=== PATIENT | female | born 1955 | race Caucasian/White ===

== ENCOUNTER → 2018-03-28 08:02 | Outpatient (CLI) | payer OTHER, SELFPAY ==
[2018-03-28 09:17] LABS: Add Manual Diff / Slide Review NO; Basophils Percent Auto 0.4 % (0-2); Eosinophils Percent Auto 4.4 % (2-4); Hematocrit 41.9 % (36-46); Hemoglobin 14.3 g/dL (12.0-16.0); Lymphocytes Percent Auto 35.9 % (25-40); Mean Corpuscular HGB Conc 34.2 % (30-36); Mean Corpuscular Hemoglobin 29.7 PG (26-34); Mean Corpuscular Volume 86.8 fL (80-100); Monocytes Percent Auto 10.3 % (3-14); Neutrophils Absolute Auto 1800 /uL (3000-5900); Platelet Count 234 X10^3/uL (150-400); Red Blood Cell Count 4.83 X10^6/uL (4.0-5.2); Red Cell Distribution Width 13.7 % (11.6-14.8); White Blood Cell Count 3.7 X10^3/uL (4.5-11.0)
[2018-03-28 09:21] LABS: Alanine Aminotransferase 24 IU/L (9-52); Albumin 4.2 g/dL (3.5-5.0); Albumin Globulin Ratio 1.4 (1.0-2.8); Alkaline Phosphatase 76 U/L (38-126); Aspartate Aminotransferase 21 IU/L (14-36); BUN Creatinine Ratio 12.5 (6-22); Bilirubin Total 0.4 mg/dL (0.2-1.3); Blood Urea Nitrogen 10 mg/dL (7-17); Calcium 9.1 mg/dL (8.4-10.2); Carbon Dioxide 29 mmol/L (22-32); Chloride 104 mmol/L (98-107); Cholesterol 226 mg/dL (140-199); Estimated Glomerular Filt Rate > 60.0 mL/min (>60); Globulin 2.9 g/dL (1.7-4.1); Glucose 89 mg/dL (80-110); HDL Cholesterol 76 mg/dL (40-60); HEMOLYSIS < 15 (0-50); LDL Cholesterol Calculated 134 mg/dL (<100); Potassium 4.3 mmol/L (3.4-5.1); Sodium 142 mmol/L (137-145); Total Protein 7.1 g/dL (6.3-8.2); Triglycerides 78 mg/dL (35-150)
== END ==
PROVIDERS: Visit Provider Registered Nurse
DX: J32.9 Chronic sinusitis, unspecified (principal); R03.0 Elevated blood-pressure reading, without diagnosis of hypertension; Z13.6 Encounter for screening for cardiovascular disorders
CPT/HCPCS: 36415; 80053; 80061; 85025

== ENCOUNTER → 2018-05-10 12:47 | Outpatient (CLI) | payer OTHER, SELFPAY | PROVIDERS: Visit Provider Registered Nurse | DX: M85.88 Other specified disorders of bone density and structure, other site (principal); Z78.0 Asymptomatic menopausal state; Z82.62 Family history of osteoporosis | CPT/HCPCS: 77080 ==

== ENCOUNTER → 2018-11-10 10:07 | Outpatient (CLI) | payer OTHER, SELFPAY ==
--- NOTE | 2018-11-10 10:08 | DI.MG.S_ITS ---
BILATERAL DIGITAL SCREENING MAMMOGRAM 3D/2D WITH CAD: 11/10/2018 CLINICAL: Routine screening. Family history of breast cancer. Comparison is made to exams dated: 08/19/2009 mammogram, 08/08/2008 mammogram, and 07/06/2007 mammogram - [facility]. The tissue of both breasts is extremely dense, which lowers the sensitivity of mammography. Current study was also evaluated with a Computer Aided Detection (CAD) system. No significant masses, calcifications, or other findings are seen in either breast. There has been no significant interval change. IMPRESSION: NEGATIVE There is no mammographic evidence of malignancy. A 1 year screening mammogram is recommended. This exam was interpreted at Station ID: [id number]. NOTE: For mammograms, a report in lay terms will be sent to the patient. Approximately 15% of breast malignancies will not be visualized mammographically. In the management of a palpable breast mass, a negative mammogram must not discourage biopsy of a clinically suspicious lesion. Electronically Signed By: Jose Francisco briceño/reena:11/11/2018 06:28:55 letter sent: Normal Exam ACR BI-RADS Category 1: Negative 3341F
[2018-11-10 11:31] LABS: Add Manual Diff / Slide Review NO; Basophils Absolute Auto 0 /uL (0-100); Basophils Percent Auto 0.5 % (0-2); Eosinophils Absolute Auto 100 /uL (0-450); Hematocrit 39.4 % (36-46); Hemoglobin 13.5 g/dL (12.0-16.0); Lymphocytes Absolute Auto 1200 /uL (1100-4500); Mean Corpuscular HGB Conc 34.4 % (30-36); Mean Corpuscular Hemoglobin 29.8 PG (26-34); Mean Corpuscular Volume 86.8 fL (80-100); Monocytes Absolute Auto 300 /uL (0-900); Monocytes Percent Auto 9.4 % (3-14); Neutrophils Absolute Auto 2100 /uL (1500-7000); Neutrophils Percent Auto 56.1 % (50-75); Platelet Count 238 X10^3/uL (150-400); Red Blood Cell Count 4.54 X10^6/uL (4.0-5.2); Red Cell Distribution Width 13.7 % (11.6-14.8); White Blood Cell Count 3.7 X10^3/uL (4.5-11.0)
== END ==
PROVIDERS: Visit Provider Registered Nurse
DX: Z12.31 Encounter for screening mammogram for malignant neoplasm of breast (principal); Z80.3 Family history of malignant neoplasm of breast; D72.819 Decreased white blood cell count, unspecified
CPT/HCPCS: 36415; 77063; 77067; 85025

== ENCOUNTER 2019-05-12 07:18 | Day surgery (SDC) | payer OTHER, SELFPAY ==
[2019-05-12] VITALS (7 sets, daily range): BP systolic 74–105; BP diastolic 44–75; PULSE 64–85; RESP 10–15; TEMP 36.2–37; O2SAT 95–99; BMI 27.2
[2019-05-12] MEDS: SODIUM CHLORIDE 0.9% 1,000 ML 200 ML IV (07:45)
--- NOTE | 2019-05-12 08:35 | PM.HP.1 ---
History of Present Illness History of Present Illness Date Patient Seen: 05/12/19 Time Patient Seen: 08:35 Chief complaint: Colonoscopy [id number] Narrative: This is a 64-year-old woman with history of screening colonoscopy 10 years ago which she was told was normal. She denies any melena, hematochezia, or other unexplained abdominal symptoms. ROS: Thirteen system review is negative other than as mentioned below and in HPI. PE: GENERAL: Well groomed and cooperative. Appears stated age. Answers questions promptly and appropriately. Vital signs noted. HENT: Normocephalic, atraumatic. Hearing intact. Oral mucosa is pink and moist. EYES: Conjunctiva pink, sclera white, no periorbital swelling. CARDIOVASCULAR: Regular rate. No pedal edema. RESPIRATORY: Non tachypneic, breathing comfortably on room air. GASTROINTESTINAL: Abdomen soft and non-distended GENITALURINARY: No flank tenderness. MUSCULOSKELETAL: Equal tone and mass bilaterally. SKIN: Warm, dry, soft, appropriate color for ethnicity. No other lesions, rashes, or wounds. NEURO: Alert and Oriented X 3. No gross sensory deficits, or cognitive issues. PSYCH: Appropriate affect and mood. Patient History Medical History Chicken pox (Resolved ~1957) Herpes (Resolved ~1971) History of urinary incontinence (Chronic) Knee pain (Chronic ~2013) Measles (Resolved ~1958) Recurrent sinusitis (Chronic) Rosacea (Chronic) Skin cancer (Chronic ~2005) Vertigo (Resolved ~2005) Vision disorder (Chronic) Surgical History Anesthesia (Resolved) History of section (Resolved ~1980) History of surgery (Resolved ~1991) Mohs defect (Resolved ~2005) Family & Social History Family History Father Hypertension Heart disease Mental health problem Mother Cancer Social History: household members spouse Tobacco & Substance use: Smoking Status Never smoker alcohol intake current Meds Home Medications and Allergies Home Medications Medication Instructions Recorded Confirmed Type calcium carbonate [Calcium 500] 500 mg PO DAILY 05/12/19 05/12/19 History cholecalciferol (vitamin D3) 2,000 unit PO DAILY 05/12/19 05/12/19 History [Vitamin D3] ibuprofen 600 mg PO Q6H PRN 05/12/19 05/12/19 History magnesium 250 mg PO DAILY 05/12/19 05/12/19 History Allergies Allergy/AdvReac Type Severity Reaction Status Date / Time No Known Drug Allergies Allergy Verified 05/12/19 07:44 Exam Vital Signs (past 8 hours): - 05/12/19 07:39 Temperature 97.6 F Pulse Rate 75 Respiratory Rate 15 Blood Pressure 105/75 Pulse Oximetry 95 Oxygen Delivery Method Room Air Assessment & Plan Assessment and plan (1) At average risk for colon cancer: Current visit: Yes Status: Acute (2) Encounter for screening colonoscopy: Current visit: Yes Status: Acute Assessment & Plan narrative: Risks and benefits of screening colonoscopy were discussed the patient desires to proceed. We discussed the risk of bleeding, perforation, need for additional procedures. Time Spent With Patient Time with patient: 15-24 minutes Quality VTE Deep Vein Thrombosis/Pulmonary Embolism Present on Admission: No
--- NOTE | 2019-05-12 09:03 | PM.OP.ENDO ---
Operative Date/Time/Diagnoses Date of procedure: 05/12/19 Time of procedure: 09:03 Pre-op diagnosis: Average risk for colon cancer Post-op diagnosis: same Procedure & Clinicians Study performed: Colonoscopy Same procedure as scheduled: Yes Indications: 64-year-old woman who has not had a colonoscopy in over 10 years. Prior colonoscopy was normal for the patient. Surgeon: Daphne Gardner Procedure Notes SCOAP/Timeout: Performed Procedure in detail: The patient was brought to the room and placed in left lateral decubitus position with all bony prominences padded. A time-out was performed and then the patient was given procedural sedation starting with 3 mg of Versed and 100 mcg of fentanyl. An additional 50 micro g of fentanyl were given during the procedure. Vitals were monitored throughout the procedure and remained stable. Once adequately sedated the procedure was begun. A rectal exam was performed revealing no abnormalities. The colonoscope was then introduced to the rectum and advanced to the cecum in the usual fashion. The colon was very twisted in redundant, prolonging the procedure in requiring extra maneuvering to reach the cecum.The cecum was identified by the appendiceal orifice, the mucosal try fold, and the ileocecal valve. The scope was then retracted while rotating side to side and examining each mucosal fold. At the conclusion procedure retroflexion was performed and small grade 1-2 internal hemorrhoids without stigmata of bleeding were seen. The scope was then withdrawn from the rectum the procedure was concluded. The patient tolerated the procedure well was transferred to the PACU in stable condition. Scope withdrawal time: 8 Sedation minutes: 24 Specimen(s): none sent Complications: none Impression: Normal colon Post-procedure Recommendations: Colonscopy in 10 years Follow up: as needed Disposition: PACU
[2019-05-12] MEDS: MIDAZOLAM 5 MG/5 ML VIAL IV (09:05)
[2019-05-12] MEDS: fentaNYL 250 MCG/5 ML INJ IV (09:06)
== END 2019-05-12 09:51 | disposition home or self-care (01) ==
PROVIDERS: PCP Registered Nurse; Visit Provider Surgery
PROC: 0DJD8ZZ Inspection of Lower Intestinal Tract, Via Natural or Artificial Opening Endoscopic (ICD-10-PCS; CPT 45378; principal; 2019-05-12 08:30)
DX: Z12.11 Encounter for screening for malignant neoplasm of colon (principal); K64.0 First degree hemorrhoids
CPT/HCPCS: G0121; 45378; 99152; J2250; J3010

== ENCOUNTER → 2020-04-26 14:14 | Outpatient (CLI) | payer MEDICARE, SELFPAY ==
[2020-04-26 15:05] LABS: COVID19 -Nasal RAPID Negative (Negative)
== END ==
PROVIDERS: PCP Registered Nurse Diabetes Educator; Visit Provider Nurse Practitioner
DX: Z11.59 Encounter for screening for other viral diseases (principal)
CPT/HCPCS: 87635

== ENCOUNTER → 2020-06-29 14:23 | Outpatient (CLI) | payer MEDICARE, SELFPAY ==
[2020-06-29 15:50] LABS: COVID19 -Nasal RAPID Negative (Negative)
== END ==
PROVIDERS: PCP Registered Nurse Diabetes Educator; Visit Provider Physician Assistant
DX: Z20.822 Contact with and (suspected) exposure to COVID-19 (principal)
CPT/HCPCS: 87635; C9803

== ENCOUNTER 2020-07-02 09:01 | Day surgery (SDC) | payer MEDICARE, SELFPAY ==
[2020-07-02] MEDS: CATARACT EYE COMPOUND (10 DROPS/SYRINGE) 3 DROPS EYE-OP (09:21)
[2020-07-02] MEDS: PROPARACAINE 0.5% OPHTH SOL 2 DROPS EYE-OP (09:21)
--- NOTE | 2020-07-02 09:28 | PM.PREOP ---
Pre-operative Note Interval Note History & Physical reviewed/Exam performed by Physician: Yes Changes to H&P: No
--- NOTE | 2020-07-02 09:28 | PM.OP.1 ---
Operative Date/Time/Diagnoses Pre-op diagnosis: Nuclear cataract right eye Procedure & Clinicians Procedure: Cataract Surgery Same procedure as scheduled: Yes Surgeon: eKvin Alvarez Anesthesia Type: MAC +/- and Sedation Operative Notes Procedure in detail: Patient brought to the operating suite. Tetracaine drops placed in the right eye. Patient was prepped and draped in sterile manner. Wire lid speculum was placed in the eye. Betadine drops were placed on the eye. This was irrigated. Lidocaine jelly was placed on the eye. A paracentesis port was created with a side-port blade. 0.1 mL 1% preservative free lidocaine was injected into the anterior chamber. The anterior chamber was deepened with viscoelastic. 2.6 mm keratome was used to create a temporal clear corneal incision. Cystotome and Utrata forceps were used to create continuous tear capsulorrhexis. Balanced salt solution was used to hydro dissect the nucleus. The phacoemulsification handpiece was inserted and the nucleus was removed using the stop and chop technique. The irrigation aspiration handpiece was inserted and the remaining cortex was removed. Anterior chamber was deepened with viscoelastic. An Scott ZCB00 intraocular lens with a power of 22.0 was injected into the capsular bag. Irrigation aspiration handpiece was inserted and the remaining viscoelastic was removed. Incision was hydrated with balanced salt solution and found to be leak free with pressure with Weck-Regina sponges. 0.1 mL Vigamox injected anterior chamber. 0.3 mL Kenalog 10 mg was injected subconjunctivally. Lid speculum was removed. The patient left the operating room in excellent condition. Complications: none Post-operative Condition: stable Disposition: same day surgery
[2020-07-02 09:30] VITALS: BP 105/69; PULSE 81; RESP 14; TEMP 36.7; O2SAT 100
[2020-07-02 09:32] VITALS: BMI 26.2
[2020-07-02] MEDS: TRIAMCINOLONE 50 MG/5 ML VIAL INJ (09:48)
[2020-07-02] MEDS: MOXIFLOXACIN INJ 5 MG/ML VIAL EYE-OP (09:48)
[2020-07-02] MEDS: BALANCED SALT IRRIG SOLN NO.2 500 ML, EPINEPHrine 1 MG IRR (09:49)
[2020-07-02] MEDS: PHENYLEPHRINE/LIDOCAINE VIAL (OR) 0.2 ML EYE-OP (09:49)
[2020-07-02] MEDS: LIDOCAINE JELLY 2% 5 ML 1 APPLIC TOP (09:50)
[2020-07-02] MEDS: CHONDROIDTIN/SOD HYALURONATE 1.05 ML SYRINGE INTRAOCULA (09:50)
[2020-07-02] MEDS: TETRACAINE 0.5% OPHTH DROPS 4 ML 2 DROPS EYE-OP (09:50)
[2020-07-02 10:00] VITALS: BP 106/69; PULSE 71; RESP 14; TEMP 36.4; O2SAT 99
== END 2020-07-02 10:13 | disposition home or self-care (01) ==
PROVIDERS: PCP Registered Nurse Diabetes Educator; Referring Provider Ophthalmology; Visit Provider Ophthalmology
PROC: (CPT 66984; principal; 2020-07-02 10:45)
DX: H25.11 Age-related nuclear cataract, right eye (principal)
CPT/HCPCS: 66984; J0171; J2250; J3301

== ENCOUNTER → 2020-07-13 09:29 | Outpatient (CLI) | payer MEDICARE, SELFPAY ==
[2020-07-13 11:15] LABS: COVID19 -Nasal RAPID Negative (Negative)
== END ==
PROVIDERS: PCP Registered Nurse Diabetes Educator; Visit Provider Nurse Practitioner Family
DX: Z20.822 Contact with and (suspected) exposure to COVID-19 (principal)
CPT/HCPCS: 87635; C9803

== ENCOUNTER 2020-07-16 08:03 | Day surgery (SDC) | payer MEDICARE, SELFPAY ==
[2020-07-16] MEDS: PROPARACAINE 0.5% OPHTH SOL 2 DROPS EYE-OP (08:42)
[2020-07-16 08:43] VITALS: BP 124/70; PULSE 67; RESP 97; TEMP 36.6; BMI 62.1
[2020-07-16] MEDS: CATARACT EYE COMPOUND (10 DROPS/SYRINGE) 3 DROPS EYE-OP (08:45)
--- NOTE | 2020-07-16 09:31 | P.OP_ITS ---
Operative Date/Time/Diagnoses Pre-op diagnosis: Nuclear Cataract Left eye Post-op diagnosis: same Procedure & Clinicians Same procedure as scheduled: Yes Surgeon: Kevin Alvarez Anesthesia Type: MAC +/- and Sedation Operative Notes Procedure in detail: Patient brought to the operating suite. Tetracaine drops placed in the left eye. Patient was prepped and draped in sterile manner. Wire lid speculum was placed in the eye. Betadine drops were placed on the eye. This was irrigated. Lidocaine jelly was placed on the eye. A paracentesis port was created with a side-port blade. 0.1 mL 1% preservative free lidocaine was injected into the anterior chamber. The anterior chamber was deepened with viscoelastic. 2.6 mm keratome was used to create a temporal clear corneal incision. Cystotome and Utrata forceps were used to create continuous tear capsulorrhexis. Balanced salt solution was used to hydro dissect the nucleus. The phacoemulsification handpiece was inserted and the nucleus was removed using the stop and chop technique. The irrigation aspiration handpiece was inserted and the remaining cortex was removed. Anterior chamber was deepened with viscoe lastic. An Scott ZCB00 intraocular lens with a power of 24.0 was injected into the capsular bag. Irrigation aspiration handpiece was inserted and the remaining viscoelastic was removed. Incision was hydrated with balanced salt solution and found to be leak free with pressure with Weck-Regina sponges. 0.1 mL Vigamox injected anterior chamber. 0.3 mL Kenalog 10 mg was injected subconjunctivally. Lid speculum was removed. The patient left the operating room in excellent condition. Complications: none Post-operative Condition: stable Disposition: same day surgery
--- NOTE | 2020-07-16 09:31 | PM.PREOP ---
Pre-operative Note Interval Note History & Physical reviewed/Exam performed by Physician: Yes Changes to H&P: No
[2020-07-16] MEDS: CHONDROIDTIN/SOD HYALURONATE 1.05 ML SYRINGE INTRAOCULA (09:45)
[2020-07-16] MEDS: LIDOCAINE JELLY 2% 5 ML 1 APPLIC TOP (09:45)
[2020-07-16] MEDS: PHENYLEPHRINE/LIDOCAINE VIAL (OR) 0.2 ML EYE-OP (09:46)
[2020-07-16] MEDS: TETRACAINE 0.5% OPHTH DROPS 4 ML 2 DROPS EYE-OP (09:46)
[2020-07-16] MEDS: MOXIFLOXACIN INJ 5 MG/ML VIAL EYE-OP (09:46)
[2020-07-16] MEDS: TRIAMCINOLONE 50 MG/5 ML VIAL INJ (09:47)
[2020-07-16] MEDS: BALANCED SALT IRRIG SOLN NO.2 500 ML, EPINEPHrine 1 MG IRR (09:47)
[2020-07-16 10:03] VITALS: BP 96/65; PULSE 67; RESP 16; TEMP 36.6; O2SAT 97
--- NOTE | 2020-07-16 10:11 | SUR.PHASEII ---
Pt has met discharge criteria: VSS, denied pain or nausea, able to drink fluids without difficulty. Discharge instructions discussed, all questions answered. Transported via W\C to private vehicle.
== END 2020-07-16 10:16 | disposition home or self-care (01) ==
PROVIDERS: PCP Registered Nurse Diabetes Educator; Referring Provider Ophthalmology; Visit Provider Ophthalmology
PROC: (CPT 66984; principal; 2020-07-16 09:45)
DX: H25.12 Age-related nuclear cataract, left eye (principal)
CPT/HCPCS: 66984; 36415; J0171; J2250; J3010; J3301

== ENCOUNTER → 2021-07-17 14:24 | Outpatient (CLI) | payer MEDICARE, SELFPAY ==
--- NOTE | 2021-07-17 14:25 | DI.MG.S_ITS ---
BILATERAL DIGITAL SCREENING MAMMOGRAM 3D/2D WITH CAD: 07/17/2021 CLINICAL: Routine screening. Family history of breast cancer. Comparison is made to exams dated: 11/10/2018 mammogram, 08/19/2009 mammogram, and 08/08/2008 mammogram - [facility]. The tissue of both breasts is extremely dense, which lowers the sensitivity of mammography. Current study was also evaluated with a Computer Aided Detection (CAD) system. No significant masses, calcifications, or other findings are seen in either breast. There has been no significant interval change. IMPRESSION: NEGATIVE There is no mammographic evidence of malignancy. A 1 year screening mammogram is recommended. This exam was interpreted at Station ID: [id number]. NOTE: For mammograms, a report in lay terms will be sent to the patient. Approximately 15% of breast malignancies will not be visualized mammographically. In the management of a palpable breast mass, a negative mammogram must not discourage biopsy of a clinically suspicious lesion. Electronically Signed By: Hammad Ba M.D., jr/reena:07/17/2021 16:00:45 letter sent: Normal Exam ACR BI-RADS Category 1: Negative 3341F
--- NOTE | 2021-07-17 14:25 | DI.RAD.S_ITS ---
PROCEDURE: XR DEXA AXIAL SKELETON INDICATIONS: f/u osteopenia COMPARISON: None. FINDINGS: This blank DEXA report has been sent in error by the PACS system. The correct and complete report will be forthcoming in 1-2 days. Thank you for your patience and understanding. Dictated by: Valery Rivera MD, PhD on 07/17/2021 at 16:23 Approved by: Valery Rivera MD, PhD on 07/17/2021 at 16:23
== END ==
PROVIDERS: PCP Registered Nurse Diabetes Educator; Referring Provider Naturopath; Visit Provider Naturopath
DX: Z12.31 Encounter for screening mammogram for malignant neoplasm of breast (principal); Z80.3 Family history of malignant neoplasm of breast; M85.88 Other specified disorders of bone density and structure, other site; Z78.0 Asymptomatic menopausal state; Z82.62 Family history of osteoporosis
CPT/HCPCS: 77063; 77067; 77080

== ENCOUNTER 2021-12-09 12:21 | Emergency (ER) | payer MEDICARE, SELFPAY ==
[2021-12-09] VITALS (8 sets, daily range): BP systolic 113–142; BP diastolic 60–82; PULSE 56–83; RESP 14; TEMP 36.3; O2SAT 92–99; BMI 29.2
--- NOTE | 2021-12-09 12:32 | DI.CT.S_ITS ---
PROCEDURE: CT HEAD/BRAIN WO CON INDICATIONS: head pain,dizzy and nausea TECHNIQUE: Noncontrast 4.5 mm thick angled axial sections acquired from the foramen magnum to the vertex, with coronal and sagittal reformats. For radiation dose reduction, the following was used: automated exposure control, adjustment of mA and/or kV according to patient size. COMPARISON: None. FINDINGS: Image quality: Excellent. CSF spaces: Basal cisterns are patent. No extra-axial fluid collections. The ventricles are symmetric in size and shape. Brain: No intracranial bleeds or masses. There is cerebral volume loss for age, with resultant ventricular and sulcal prominence. There are periventricular and deep white matter chronic small vessel ischemic changes. There is intracranial internal carotid artery atherosclerosis. Skull and face: Calvarium and visualized facial bones appear intact, without suspicious lesions. Sinuses: Visualized sinuses and mastoids are clear. IMPRESSION: 1. No acute intracranial process. 2. Mild atrophy and chronic microvascular ischemic changes. Dictated by: Sandi Smith M.D. on 12/09/2021 at 12:52 Approved by: Sandi Smith M.D. on 12/09/2021 at 12:53
--- NOTE | 2021-12-09 15:18 | ED_ITS ---
HPI - Dizziness <Nelly Watson [facility] - Last Filed: 12/09/21 18:07> General Chief Complaint: Dizziness Stated Complaint: headache/nausea Time Seen by Provider: 12/09/21 15:38 Source: patient Mode of arrival: Ambulatory History of Present Illness HPI Narrative: This is a 66-year-old female with history sinusitis in the past, states that she is sinus congestion for the last two weeks now has sinus tenderness. She presents to the emergency department today for acute onset of dizziness which started yesterday morning while she was doing yoga after some head position movements. She has a history of BPPV, has performed the Laura maneuver at home many times without and she states that she became nauseated and vomited today about the same time as her headache. She denies any recent trauma, states that it has been 15 years since she had BPPV. She states that at that time it was a severe case. She reports having green nasal discharge, feeling fatigued, has not had any recent fever, cough, shortness of breath, chest pain, difficulty breathing, changes to her urination or stool. She denies any sick contacts, she endorses seasonal allergies and allergic rhinitis at baseline. She states that she is not been taking any allergy medicine although she usually benefits from it when she does. Patient reports that she feels like she is spinning, the room was not spinning around her. She denies any vision changes at this time. Related Data Home Medications Medication Instructions Recorded Confirmed cholecalciferol (vitamin D3) 50 2,000 unit PO DAILY 05/12/19 04/01/21 mcg (2,000 unit) tablet (Vitamin D3) ibuprofen 200 mg tablet 600 mg PO Q6H PRN Pain (Scale 05/12/19 04/01/21 Score 1-3) ascorbic acid 1,000 1,000 mg PO DAILY 04/02/20 04/01/21 wp-yhkqxyodfrqa-daerlaxt powder effervescent pack (Emergen-C) turmeric PO 04/02/20 04/01/21 zinc gluconate 10 mg lozenges 10 mg PO DAILY 04/02/20 04/01/21 calcium carbonate 500 mg calcium 1,000 mg PO DAILY 06/13/20 04/01/21 (1,250 mg) tablet (Calcium 500) lactobacillus comb no.10 20 30,000 mmu cells PO DAILY 06/13/20 04/01/21 billion cell capsule (Probiotic) magnesium 250 mg tablet 640 mg PO DAILY 06/13/20 04/01/21 vitamin k 100 mcg PO 06/13/20 04/01/21 Previous Rx's Medication Instructions Recorded doxycycline hyclate 100 mg tablet 100 mg PO BID sinusitis 7 days #14 12/09/21 tabs fluticasone propionate 50 1 spray intranasal BID 7 days #16 12/09/21 mcg/actuation nasal grams spray,suspension ondansetron 4 mg disintegrating 4 mg PO Q8H PRN nausea and 12/09/21 tablet vomiting #14 tabs Allergies Allergy/AdvReac Type Severity Reaction Status Date / Time No Known Drug Allergies Allergy Verified 12/09/21 12:26 Review of Systems <ALONA Chaney - Last Filed: 12/09/21 18:07> Review of Systems Narrative: General: denies fever, chills, malaise, sweats, endorses some fatigue Head/Neck: Endorses frontal headache with dizziness, denies any neck pain or neck stiffness, endorses sinus tenderness Eyes: denies visual changes, eye pain Cardio: denies chest pain, palpitations, edema Respiratory: denies dyspnea, cough, orthopnea GI: denies abdominal pain, nausea, vomiting, or diarrhea : denies dysuria, hematuria, urinary retention, frequency or incontinence MSK: denies joint pain, muscle weakness Skin: denies rash, itching, skin lesions or other Neuro: denies numbness, tingling Patient History <ALONA Chaney - Last Filed: 12/09/21 18:07> Medical History Bilateral knee pain Chicken pox (~1957) Elevated LDL cholesterol level Herpes (~1971) History of urinary incontinence Insomnia Knee pain (~2013) Measles (~1958) Osteopenia Recurrent sinusitis Right knee pain Rosacea Skin cancer (~2005) Vertigo (~2005) Vision disorder Surgical History Anesthesia History of section (~1980) History of surgery (~1991) Mohs defect (~2005) Family History Father Hypertension Heart disease Mental health problem Loud snoring Insomnia Obesity Mother Cancer Obesity Hypertension Family/Other Loud snoring Obesity Social History household members: spouse Smoking Status: Former smoker alcohol intake: current substance use type: does not use Smoking Status: Former smoker alcohol intake frequency: a few times a week Substance Use Type: does not use Exam <ALONA Chaney - Last Filed: 12/09/21 18:07> Narrative Exam Narrative: Independently reviewed vitals signs and nursing notes. General: cooperative, comfortable, in no acute distress, well groomed Head: atraumatic, symmetrical facial expressions Neck: supple Eyes: equal round and reactive, EOMI, conjunctiva normal Ears: Right ear canal with cerumen impaction, Colace and water irrigation cleared this out, TM behind appears retracted, not suppurative, without erythema, left TM has mild cerumen impaction without rupture of TM, positive light reflex, clear fluid behind TM Nose: nares patent, + rhinorrhea with reported odor Mouth/Throat: moist mucus membranes Cardiovascular: regular rate and rhythm, no peripheral edema, warm extremities Respiratory: normal effort, able to speak in complete sentences, no audible wheezing, stridor, or rales. No retractions or tachypnea. GI: abdomen soft, nontender to palpation, nondistended, no masses, no exquisite tenderness with exam, without guarding or rebound. MSK: moves all extremities, neurovascularly intact, no weakness, normal tone Skin: brisk capillary refill, no rash, no erythema Neuro: normal speech and cognition, A&O x3 Psych: mental status is grossly normal, congruent mood, normal affect, pleasant and cooperative Initial Vital Signs Initial Vital Signs: Vital Signs Temperature 97.3 F L 12/09/21 12:26 Pulse Rate 77 12/09/21 12:26 Respiratory Rate 14 12/09/21 12:26 Blood Pressure 134/82 12/09/21 12:26 Pulse Oximetry 99 12/09/21 12:26 Oxygen Delivery Method 12/09/21 12:26 <Sobia Valerio DO - Last Filed: 12/15/21 10:19> Initial Vital Signs Initial Vital Signs: Vital Signs Temperature 97.3 F L 07/12/22 12:26 Pulse Rate 77 12/09/21 12:26 Respiratory Rate 14 12/09/21 12:26 Blood Pressure 134/82 12/09/21 12:26 Pulse Oximetry 99 12/09/21 12:26 Oxygen Delivery Method 12/09/21 12:26 Course <ALONA Chaney - Last Filed: 12/09/21 18:07> Orders Ordered: Discontinued Medications Diphenhydramine HCl (Diphenhydramine 50 Mg/Ml Vial) 25 mg IV NOW ONE Stop: 12/09/21 15:18 Last Admin: 12/09/21 15:39 Dose: 25 mg Documented By: NR Docusate Sodium (Docusate 100 Mg Capsule) 100 mg PO NOW ONE Stop: 12/09/21 15:19 Last Admin: 12/09/21 16:35 Dose: 100 mg Documented By: NR Sodium Chloride (Normal Saline 0.9%) 1,000 mls @ 1,000 mls/hr IV BOLUS ONE Stop: 12/09/21 16:16 Last Infusion: 12/09/21 17:10 Dose: 0 mls/hr Documented By: Admin: 12/09/21 15:39 Dose: 1,000 mls/hr Documented By: NR Ketorolac Tromethamine (Ketorolac 30 Mg/Ml Vial) 15 mg IV NOW ONE Stop: 12/09/21 15:18 Last Admin: 12/09/21 15:39 Dose: 15 mg Documented By: NR Loratadine (Loratadine 10 Mg Tablet) 10 mg PO NOW ONE Stop: 12/09/21 15:21 Last Admin: 12/09/21 15:39 Dose: 10 mg Documented By: NR Ondansetron HCl (Ondansetron 4 Mg/2 Ml Inj) 4 mg IV NOW ONE Stop: 12/09/21 15:18 Last Admin: 12/09/21 15:39 Dose: 4 mg Documented By: NR Vital Signs Vital signs: Vital Signs - 8 hr 12/09/21 12:26 12/09/21 15:50 12/09/21 15:51 Temperature 97.3 F L Pulse Rate 77 75 79 Respiratory Rate 14 Blood Pressure 134/82 Pulse Oximetry 99 98 99 Oxygen Delivery Method Room Air 12/09/21 15:51 12/09/21 16:00 12/09/21 16:00 Temperature Pulse Rate 71 Respiratory Rate Blood Pressure 142/72 H 134/72 Pulse Oximetry 99 Oxygen Delivery Method 12/09/21 16:30 12/09/21 16:30 12/09/21 17:00 Temperature Pulse Rate 83 Respiratory Rate Blood Pressure 140/75 123/63 Pulse Oximetry 99 Oxygen Delivery Method 12/09/21 17:00 12/09/21 17:52 12/09/21 17:53 Temperature Pulse Rate 64 56 L Respiratory Rate Blood Pressure 113/60 Pulse Oximetry 98 92 Oxygen Delivery Method 12/09/21 17:53 Temperature Pulse Rate 76 Respiratory Rate Blood Pressure Pulse Oximetry 99 Oxygen Delivery Method <Sobia Valerio DO - Last Filed: 12/15/21 10:19> Orders Ordered: Discontinued Medications Diphenhydramine HCl (Diphenhydramine 50 Mg/Ml Vial) 25 mg IV NOW ONE Stop: 12/09/21 15:18 Last Admin: 12/09/21 15:39 Dose: 25 mg Documented By: NR Docusate Sodium (Docusate 100 Mg Capsule) 100 mg PO NOW ONE Stop: 12/09/21 15:19 Last Admin: 12/09/21 16:35 Dose: 100 mg Documented By: NR Sodium Chloride (Normal Saline 0.9%) 1,000 mls @ 1,000 mls/hr IV BOLUS ONE Stop: 12/09/21 16:16 Last Infusion: 12/09/21 17:10 Dose: 0 mls/hr Documented By: Admin: 12/09/21 15:39 Dose: 1,000 mls/hr Documented By: NR Ketorolac Tromethamine (Ketorolac 30 Mg/Ml Vial) 15 mg IV NOW ONE Stop: 12/09/21 15:18 Last Admin: 12/09/21 15:39 Dose: 15 mg Documented By: NR Loratadine (Loratadine 10 Mg Tablet) 10 mg PO NOW ONE Stop: 12/09/21 15:21 Last Admin: 12/09/21 15:39 Dose: 10 mg Documented By: NR Ondansetron HCl (Ondansetron 4 Mg/2 Ml Inj) 4 mg IV NOW ONE Stop: 12/09/21 15:18 Last Admin: 12/09/21 15:39 Dose: 4 mg Documented By: NR Vital Signs Vital signs: Vital Signs - 8 hr 12/09/21 12:26 12/09/21 15:50 12/09/21 15:51 Temperature 97.3 F L Pulse Rate 77 75 79 Respiratory Rate 14 Blood Pressure 134/82 Pulse Oximetry 99 98 99 Oxygen Delivery Method Room Air 12/09/21 15:51 12/09/21 16:00 12/09/21 16:00 Temperature Pulse Rate 71 Respiratory Rate Blood Pressure 142/72 H 134/72 Pulse Oximetry 99 Oxygen Delivery Method 12/09/21 16:30 12/09/21 16:30 12/09/21 17:00 Temperature Pulse Rate 83 Respiratory Rate Blood Pressure 140/75 123/63 Pulse Oximetry 99 Oxygen Delivery Method 12/09/21 17:00 12/09/21 17:52 12/09/21 17:53 Temperature Pulse Rate 64 56 L Respiratory Rate Blood Pressure 113/60 Pulse Oximetry 98 92 Oxygen Delivery Method 12/09/21 17:53 Temperature Pulse Rate 76 Respiratory Rate Blood Pressure Pulse Oximetry 99 Oxygen Delivery Method MDM - Dizziness <ALONA Chaney - Last Filed: 12/09/21 18:07> Lab Data Result diagrams: 12/09/21 16:42 12/09/21 16:42 Labs: Lab Results 12/09/21 12/09/21 Range/Units 16:42 16:42 WBC 5.9 (4.5-11.0) X10^3/uL RBC 4.56 (4.0-5.2) X10^6/uL Hgb 13.5 (12.0-16.0) g/dL Hct 39.9 (36-46) % MCV 87.5 (80-100) fL MCH 29.6 (26-34) PG MCHC 33.8 (30-36) % RDW 13.4 (11.6-14.8) % Plt Count 222 (150-400) X10^3/uL Neut % (Auto) 87.0 H (50-75) % Lymph % (Auto) 9.4 L (25-40) % [place] % (Auto) 3.1 (3-14) % Eos % (Auto) 0.1 L (2-4) % Baso % (Auto) 0.4 (0-2) % Neut # (Auto) 5100 (4746-9914) /uL Lymph # (Auto) 600 L (5768-2099) /uL [place] # (Auto) 200 (0-900) /uL Eos # (Auto) 0 (0-450) /uL Baso # (Auto) 0 (0-100) /uL Sodium 138 (137-145) mmol/L Potassium 4.3 (3.4-5.1) mmol/L Chloride 108 H (98-107) mmol/L Carbon Dioxide 25 (22-32) mmol/L BUN 7 (7-17) mg/dL Creatinine 0.64 (0.52-1.04) mg/dL Estimated GFR > 60 (>60) mL/min BUN/Creatinine Ratio 10.9 (6-22) Glucose 91 (80-110) mg/dL Calcium 8.4 (8.4-10.2) mg/dL Total Bilirubin 0.5 (0.2-1.3) mg/dL AST 22 (14-36) IU/L ALT 16 (<35) IU/L Alkaline Phosphatase 61 (38-126) U/L Total Protein 6.6 (6.3-8.2) g/dL Albumin 3.8 (3.5-5.0) g/dL Globulin 2.8 (1.7-4.1) g/dL Albumin/Globulin Ratio 1.4 (1.0-2.8) Lipase 76 (23-300) U/L Imaging Data CT scan - head: Radiologist's Impression: PROCEDURE:? CT HEAD/BRAIN WO CON ? INDICATIONS:? head pain,dizzy and nausea ? TECHNIQUE:? Noncontrast 4.5 mm thick angled axial sections acquired from the foramen magnum to the vertex, with coronal and sagittal reformats.? For radiation dose reduction, the following was used:? automated exposure control, adjustment of mA and/or kV according to patient size.? ? COMPARISON:? None. ? FINDINGS:? Image quality:? Excellent.? ? CSF spaces:? Basal cisterns are patent.? No extra-axial fluid collections.? The ventricles are symmetric in size and shape.? ? Brain:? No intracranial bleeds or masses.? There is cerebral volume loss for age, with resultant ventricular and sulcal prominence.? There are periventricular and deep white matter chronic small vessel ischemic changes.? There is intracranial internal carotid artery atherosclerosis.? ? Skull and face:? Calvarium and visualized facial bones appear intact, without suspicious lesions.? ? Sinuses:? Visualized sinuses and mastoids are clear.? ? IMPRESSION:? 1. No acute intracranial process. ? 2. Mild atrophy and chronic microvascular ischemic changes. ? ? Dictated by: Sandi Smith M.D. on 12/09/2021 at 12:52 ? ? Approved by: Sandi Smith M.D. on 12/09/2021 at 12:53 ? CTA head neck: Radiologist's Impression: PROCEDURE:? CT ANGIO HEAD AND NECK ? INDICATIONS:? dizziness ? TECHNIQUE:? Noncontrast images were performed earlier in the day and not repeated.? ? After the administration of intravenous contrast, 1 mm thick sections acquired from the aortic arch through the [place] of Ro.? Post-contrast 4.5 mm thick sections then re- acquired from the foramen magnum to the vertex.? 3-dimensional quticoi-plvwmzrfh-qetvfzgklm (MIP) and/or volume rendering reformats were acquired of the central intracranial vasculature and neck separately. For radiation dose reduction, the following was used:? automated exposure control, adjustment of mA and/or kV according to patient size.? ? COMPARISON:? [facility], CT, CT HEAD/BRAIN WO CON, 12/09/2021, 12:47. ? FINDINGS:? Image quality:? Limited by bolus timing, with venous contamination. ? BRAIN:? CSF spaces:? Ventricles are normal in size and shape.? Basal cisterns are patent.? No extra-axial fluid collections.? ? Brain:? No midline shift.? No intracranial bleeds or masses.? Broussard-white matter interface appears intact.? ? Skull and face:? Calvarium and facial bones appear intact, without suspicious lesions.? Orbits appear normal.? ? Sinuses:? Sinuses and mastoids are clear.? ? HEAD CT ANGIOGRAPHY:? Anterior circulation:? Intracranial internal carotid arteries are normal in size and flow.? The flow within the paired anterior cerebral arteries is normal and sym metric.? The flow within the middle cerebral arteries is normal and symmetric.? The anterior communicating artery is seen.? No aneurysms are seen.? ? Posterior circulation:? Visualized portions of the vertebral arteries demonstrate normal caliber, and join to form a normal appearing basilar artery.? Flow within the posterior cerebral arteries is normal and symmetric.? No aneurysms are seen.? ? NECK CT ANGIOGRAPHY:? Carotid system:? The great vessels demonstrate a conventional anatomy as they arise from the aortic arch.? The origins of the common carotid arteries appear patent.? The common carotid arteries demonstrate normal caliber and courses.? The bifurcation regions are both widely patent.? The internal carotid arteries demonstrate normal calibers and courses.? ? Posterior circulation:? The origins of the vertebral arteries both appear widely patent.? The more superior extracranial portions of both vertebral arteries also demonstrate normal courses and calibers.? They join to form a normal appearing basilar artery.? ? Soft tissues:? Visualized neck soft tissues demonstrate no suspicious abnormalities.? ? Bones:? No suspicious bony lesions.? Visualized cervical spine appears normally aligned.? Moderate cervical spine degenerative changes are seen. ? ? IMPRESSION:? No significant intracranial arterial abnormality is seen.? ? Within the arteries of the neck, no hemodynamically significant stenosis can be seen. ? ? Any quantitative measurements of stenosis were performed using NASCET criteria.? ? ? Dictated by: Andrew Escalante M.D. on 12/09/2021 at 16:40 ? ? Approved by: Andrew Escalante M.D. on 12/09/2021 at 16:41 ? MDM Narrative Medical decision making narrative: This is a 66-year-old female with history of sinusitis, seasonal allergies, and BPPV who presents to the emergency department today with acute onset of dizziness yesterday morning when she was doing yoga. She developed a headache a fter trying to treat her dizziness with the Laura maneuver at home, states that it made her nauseated and she vomited x1. Patient is a retired nurse, states that she had BPPV approximately 15 years ago and reports it was quite a severe case, she was doing the Laura maneuver at home for a while and required IV fluids and Zofran in the emergency department. Patient denies any acute onset of dizziness like this in the past other than that one time. She endorses sinus tenderness, green nasal discharge, an odor to her nasal drainage, and about two weeks of seasonal allergies with sinus symptoms. She states that she is coughing up some phlegm, denies any wheezing, shortness of breath, chest pain, difficulty breathing, nausea and vomiting other than after the dizziness started. She denies any sick contacts, denies any fever. On exam she had a right ear canal cerumen impaction, this was irrigated out, patient reports being able to hear much better and she does not have any appearance of acute otitis media. Her right TM is retracted however and her left TM is normal with clear fluid behind and positive light reflex. Her head CT without contrast was obtained for acute onset of dizziness with nausea and vomiting afterwards. It shows no acute intracranial process, mild atrophy and chronic microvascular ischemic changes. Head and neck CTA was obtained for concern about posterior c irculation, CVA, or arterial stenosis. CTA head and neck shows no significant intracranial arterial abnormality and within the arteries of the neck, no hemodynamically significant stenosis can be seen. Headache considerations include, but not limited to: Subarachnoid hemorrhage, but unlikely as patient denies sudden onset of pain, not worst of life, or neck pain. Meningitis considered, but thought unlikely given lack of Brudzinski's, Kernig's sign, altered mental status or fever. Giant cell arteritis considered, but thought unlikely given lack of unilateral findings, pain in yazidism, vision change. HTN Emergency considered, but thought unlikely given normal vitals Other serious diagnoses considered unlikely given lack of red flag findings such as sudden onset, increasing frequency, immunocompromise, systemic signs (fever, chills, stiff neck, or rash), focal neurologic findings, trauma, blood thinners, etc. The patient has sinusitis with symptom onset greater than 10 days ago and the p atient was prescribed antibiotics. [SATISFIES MIPS PERFORMANCE] [] Patient was prescribed an amoxicillin-based antibiotic. [x] Patient was prescribed a non amoxicillin-based antibiotic because she fears diarrhea from Augmentin. Doxycycline as second-line was prescribed for seven days. Encourage patient to use Flonase, Zyrtec, stay hydrated to help improve her symptoms, she did not want any meclizine, encouraged her to follow-up with Dr. Moore regarding her use possibility of chronic sinusitis, and/or right cerumen impaction/BPPV. Patient is appropriate and amenable to discharge home. Vital signs are stable on repeat examination is unremarkable. Patient has been informed of results. Patient has been given strict return to ER precautions for any new or worsening symptoms. Patient understands to follow up closely with outpatient providers as instructed. Patient understands plan and agrees to discharge home. All questions and concerns answered at this time. <Sobia Valerio, DO - Last Filed: 12/15/21 10:19> Lab Data Labs: Lab Results 12/09/21 12/09/21 Range/Units 16:42 16:42 WBC 5.9 (4.5-11.0) X10^3/uL RBC 4.56 (4.0-5.2) X10^6/uL Hgb 13.5 (12.0-16.0) g/dL Hct 39.9 (36-46) % MCV 87.5 (80-100) fL MCH 29.6 (26-34) PG MCHC 33.8 (30-36) % RDW 13.4 (11.6-14.8) % Plt Count 222 (150-400) X10^3/uL Neut % (Auto) 87.0 H (50-75) % Lymph % (Auto) 9.4 L (25-40) % [place] % (Auto) 3.1 (3-14) % Eos % (Auto) 0.1 L (2-4) % Baso % (Auto) 0.4 (0-2) % Neut # (Auto) 5100 (1602-0668) /uL Lymph # (Auto) 600 L (7639-1108) /uL [place] # (Auto) 200 (0-900) /uL Eos # (Auto) 0 (0-450) /uL Baso # (Auto) 0 (0-100) /uL Sodium 138 (137-145) mmol/L Potassium 4.3 (3.4-5.1) mmol/L Chloride 108 H (98-107) mmol/L Carbon Dioxide 25 (22-32) mmol/L BUN 7 (7-17) mg/dL Creatinine 0.64 (0.52-1.04) mg/dL Estimated GFR > 60 (>60) mL/min BUN/Creatinine Ratio 10.9 (6-22) Glucose 91 (80-110) mg/dL Calcium 8.4 (8.4-10.2) mg/dL Total Bilirubin 0.5 (0.2-1.3) mg/dL AST 22 (14-36) IU/L ALT 16 (<35) IU/L Alkaline Phosphatase 61 (38-126) U/L Total Protein 6.6 (6.3-8.2) g/dL Albumin 3.8 (3.5-5.0) g/dL Globulin 2.8 (1.7-4.1) g/dL Albumin/Globulin Ratio 1.4 (1.0-2.8) Lipase 76 (23-300) U/L Discharge Plan Departure Patient Disposition: Home Clinical Impression: Dizziness Sinusitis Qualifiers: Sinusitis location: frontal Chronicity: acute Recurrence: recurrent Qualified Code(s): J01.11 - Acute recurrent frontal sinusitis Headache Qualifiers: Headache type: unspecified Headache chronicity pattern: acute headache Intractability: not intractable Qualified Code(s): R51.9 - Headache, unspecified Cerumen impaction Qualifiers: Laterality: right Qualified Code(s): H61.21 - Impacted cerumen, right ear Benign paroxysmal positional vertigo Qualifiers: Laterality: unspecified laterality Qualified Code(s): H81.10 - Benign paroxysmal vertigo, unspecified ear Instructions: Cerumen Impaction, DI for Sinusitis, Benign Paroxysmal Positional Vertigo Activity Restrictions/Additional Instructions: *You have been diagnosed with dizziness, this is likely BPPV but could be also from your cerumen impaction on the right, middle ear effusion from your sinus symptoms, or potentially a sinus infection. Please start taking your Zyrtec nightly, you are given Claritin in the emergency department, you may choose to take Zyrtec tonight if you wish. Please remember to drink plenty of water, stay hydrated this week, remember to eat food, take deep breaths and enjoy yourself. Congratulations on your son getting . Please follow-up with Dr. Moore if you continue to have these symptoms or would like an evaluation your sinuses or ears. Please follow-up with your primary care provider if you would like to see vestibular Physical therapy for BPPV. Your CTA of your head and neck does not show any intracranial arterial abnormality, there is no significant stenosis in the arteries of your neck and overall you look quite healthy. Please use the fluticasone b.i.d., Zyrtec nightly, you may try meclizine if it is helpful, it is available [id number] and might be nice to try to seek case however see if you improve with the antibiotics for sinusitis and try to prevent headaches. Get plenty of rest this week, I have sent Zofran to the pharmacy as well. I wish you the best. Try Tylenol, naproxen, water, Zofran and Benadryl if you develop a headache like this again and see if you can sleep it off. *What to do: *Please continue to take your regular medications as directed. [x ] New medication prescriptions sent to your pharmacy: [[facility]] [ ] New medication written as a paper prescription [ ] No new medications given *Please follow up with your primary care provider in 2-3 days, call for an appointment. Let them know you were seen in the Emergency Department and that we asked that you be seen for follow-up. We will electronically transmit a record of today's note if your PCP is in our system *If you do not have a primary care provider please contact [phone] to establish care with one of the [facility] primary care providers. *Return to Emergency Department if you should have any new, worsening or concerning symptoms, such as [fever greater than 101F, chills, worsening pain, persistent vomiting or other bothersome symptoms] Prescriptions: New doxycycline hyclate 100 mg tablet 100 mg PO BID 7 Days Qty: 14 0RF fluticasone propionate 50 mcg/actuation spray,suspension 1 spray intranasal BID 7 Days Qty: 16 0RF Rx Instructions: administer into each nostril ondansetron 4 mg tablet,disintegrating 4 mg PO Q8H PRN (Reason: nausea and vomiting) Qty: 14 0RF No Action Emergen-C 1,000 mg powder effervescent in packet 1,000 mg PO DAILY turmeric liquid PO zinc gluconate 10 mg lozenge 10 mg PO DAILY ibuprofen 200 mg Tablet 600 mg PO Q6H PRN (Reason: Pain (Scale Score 1-3)) cholecalciferol (vitamin D3) [Vitamin D3] 2,000 unit Tablet 2,000 unit PO DAILY calcium carbonate [Calcium 500] 500 mg calcium (1,250 mg) tablet 1,000 mg PO DAILY magnesium 250 mg tablet 640 mg PO DAILY vitamin k tablet 100 mcg PO Probiotic 20 billion cell capsule 30,000 mmu cells PO DAILY Rx Instructions: administer with a meal Referrals: Jak Moore MD [Physician] - Jg Win ARNP [Primary Care Provider] - Visit Report Forms: Patient Portal/API <Sobia Valerio DO - Last Filed: 12/15/21 10:19> Cosign ED Attending Cosignature Attestation: Patient seen evaluated by myself. NIH is negative. She does have a history of vertigo. She is minimal dizziness now. Workup is negative. I was immediately available in the department for consultation. Documentation has been reviewed. I agree with assessment and plan.
[2021-12-09] MEDS: ONDANSETRON 4 MG/2 ML INJ IV (15:39)
[2021-12-09] MEDS: LORATADINE 10 MG TABLET PO (15:39)
[2021-12-09] MEDS: SODIUM CHLORIDE 0.9% 1,000 ML 1000 ML IV (15:39)
[2021-12-09] MEDS: KETOROLAC 30 MG/ML VIAL 15 MG IV (15:39)
[2021-12-09] MEDS: diphenhydrAMINE 50 MG/ML VIAL 25 MG IV (15:39)
--- NOTE | 2021-12-09 16:16 | DI.CT.S_ITS ---
PROCEDURE: CT ANGIO HEAD AND NECK INDICATIONS: dizziness TECHNIQUE: Noncontrast images were performed earlier in the day and not repeated. After the administration of intravenous contrast, 1 mm thick sections acquired from the aortic arch through the Randolph of Ro. Post-contrast 4.5 mm thick sections then re-acquired from the foramen magnum to the vertex. 3-dimensional cnlxomg-zytxqdtcv-avhzhbvfsw (MIP) and/or volume rendering reformats were acquired of the central intracranial vasculature and neck separately. For radiation dose reduction, the following was used: automated exposure control, adjustment of mA and/or kV according to patient size. COMPARISON: [facility], CT, CT HEAD/BRAIN WO CON, 12/09/2021, 12:47. FINDINGS: Image quality: Limited by bolus timing, with venous contamination. BRAIN: CSF spaces: Ventricles are normal in size and shape. Basal cisterns are patent. No extra-axial fluid collections. Brain: No midline shift. No intracranial bleeds or masses. Broussard-white matter interface appears intact. Skull and face: Calvarium and facial bones appear intact, without suspicious lesions. Orbits appear normal. Sinuses: Sinuses and mastoids are clear. HEAD CT ANGIOGRAPHY: Anterior circulation: Intracranial internal carotid arteries are normal in size and flow. The flow within the paired anterior cerebral arteries is normal and symmetric. The flow within the middle cerebral arteries is normal and symmetric. The anterior communicating artery is seen. No aneurysms are seen. Posterior circulation: Visualized portions of the vertebral arteries demonstrate normal caliber, and join to form a normal appearing basilar artery. Flow within the posterior cerebral arteries is normal and symmetric. No aneurysms are seen. NECK CT ANGIOGRAPHY: Carotid system: The great vessels demonstrate a conventional anatomy as they arise from the aortic arch. The origins of the common carotid arteries appear patent. The common carotid arteries demonstrate normal caliber and courses. The bifurcation regions are both widely patent. The internal carotid arteries demonstrate normal calibers and courses. Posterior circulation: The origins of the vertebral arteries both appear widely patent. The more superior extracranial portions of both vertebral arteries also demonstrate normal courses and calibers. They join to form a normal appearing basilar artery. Soft tissues: Visualized neck soft tissues demonstrate no suspicious abnormalities. Bones: No suspicious bony lesions. Visualized cervical spine appears normally aligned. Moderate cervical spine degenerative changes are seen. IMPRESSION: No significant intracranial arterial abnormality is seen. Within the arteries of the neck, no hemodynamically significant stenosis can be seen. Any quantitative measurements of stenosis were performed using NASCET criteria. Dictated by: Andrew Escalante M.D. on 12/09/2021 at 16:40 Approved by: Andrew Escalante M.D. on 12/09/2021 at 16:41
[2021-12-09] MEDS: DOCUSATE 100 MG CAPSULE PO (16:35)
[2021-12-09 16:56] LABS: Add Manual Diff / Slide Review NO; Basophils Absolute Auto 0 /uL (0-100); Basophils Percent Auto 0.4 % (0-2); Eosinophils Absolute Auto 0 /uL (0-450); Eosinophils Percent Auto 0.1 % (2-4); Hematocrit 39.9 % (36-46); Hemoglobin 13.5 g/dL (12.0-16.0); Lymphocytes Absolute Auto 600 /uL (1100-4500); Lymphocytes Percent Auto 9.4 % (25-40); Mean Corpuscular HGB Conc 33.8 % (30-36); Mean Corpuscular Hemoglobin 29.6 PG (26-34); Mean Corpuscular Volume 87.5 fL (80-100); Monocytes Absolute Auto 200 /uL (0-900); Monocytes Percent Auto 3.1 % (3-14); Neutrophils Absolute Auto 5100 /uL (1500-7000); Platelet Count 222 X10^3/uL (150-400); Red Blood Cell Count 4.56 X10^6/uL (4.0-5.2); Red Cell Distribution Width 13.4 % (11.6-14.8); White Blood Cell Count 5.9 X10^3/uL (4.5-11.0)
[2021-12-09 17:09] LABS: Alanine Aminotransferase 16 IU/L (<35); Albumin 3.8 g/dL (3.5-5.0); Albumin Globulin Ratio 1.4 (1.0-2.8); Alkaline Phosphatase 61 U/L (38-126); Aspartate Aminotransferase 22 IU/L (14-36); BUN Creatinine Ratio 10.9 (6-22); Bilirubin Total 0.5 mg/dL (0.2-1.3); Blood Urea Nitrogen 7 mg/dL (7-17); Calcium 8.4 mg/dL (8.4-10.2); Carbon Dioxide 25 mmol/L (22-32); Chloride 108 mmol/L (98-107); Estimated Glomerular Filt Rate > 60 mL/min (>60); Globulin 2.8 g/dL (1.7-4.1); Glucose 91 mg/dL (80-110); HEMOLYSIS < 15 (0-50); Lipase 76 U/L (23-300); Potassium 4.3 mmol/L (3.4-5.1); Sodium 138 mmol/L (137-145); Total Protein 6.6 g/dL (6.3-8.2)
== END 2021-12-09 18:06 | disposition home or self-care (01) ==
PROVIDERS: Emergency Provider Nurse Practitioner Critical Care Medicine; PCP Registered Nurse Diabetes Educator
DX: H81.10 Benign paroxysmal vertigo, unspecified ear (principal); J32.9 Chronic sinusitis, unspecified; R51.9 Headache, unspecified; H61.21 Impacted cerumen, right ear
CPT/HCPCS: 69209; 70450; 70496; 70498; 80053; 83690; 85025; 96361; 96374; 96375; 99284; 99285; J1200; J1885; J2405; Q9967

== ENCOUNTER 2022-10-22 11:30 | Outpatient (RCR) | payer MEDICARE, SELFPAY ==
--- NOTE | 2022-07-30 18:21 | PT.OIE ---
Current Diagnoses Mixed incontinence (07/30/22) Pelvic muscle wasting (07/30/22) Past Medical History (Last Reviewed 02/14/22 @ 14:04 by ALONA Zuleta) Bilateral knee pain Chicken pox (~1957) Elevated LDL cholesterol level Herpes (~1971) History of urinary incontinence Insomnia Knee pain (~2013) Measles (~1958) Mixed incontinence Osteopenia Recurrent sinusitis Right knee pain Rosacea Skin cancer (~2005) Vertigo (~2005) Vision disorder Past Surgical History (Last Reviewed 02/14/22 @ 14:04 by ALONA Zuleta) Anesthesia History of section (~1980) History of surgery (~1991) Mohs defect (~2005) Visit Care Team Role Provider Type ALONA Zuleta Family Provider Advanced Geriatrician Primary Care Provider Specialty: Medical Address: [address] [place] [address], [facility] Email: [email or web address] Arnold Huang MD Attending Provider Physician Referring Provider Specialty: QA ARCHITECT Address: [address] [place] [address], [address], [place], [facility] Email: [email or web address] Physical Therapy Initial Evaluation PT-OP-A Visit Information Start: 07/29/22 13:46 Freq: Status: Active Protocol: Document 07/30/22 11:24 [facility] (Rec: 07/30/22 12:13 [facility] [id number]) Out-Patient Physical Therapy Visit Information Visit Information Visit Type Initial Evaluation Visit Start Time 11:24 Visit Stop Time 12:10 Total Visit Minutes 45 Visit Number 1 Evaluation Information Evaluation Date 07/30/22 PT-OP-B Current Condition Start: 07/29/22 13:46 Freq: Status: Active Protocol: Document 07/30/22 11:24 [facility] (Rec: 07/30/22 12:13 [facility] [id number]) Current Condition History of Current Condition Onset Date 1 year ago Current Complaints urinary urge incontinence, urinary stress incontinence History of Current Condition since she has had kids she has had weakness but last fall she was sick and had a bad cough and this made her symptoms worse, now she has urgency. She voids every couple of hours. She reports she generally has a good bowel movement daily. She had been using estrodial for vaginal dryness but stopped using it when out of town x 6 weeks but she is back on it now. Prior Treatments and Tests hx of years ago. Treatment Goals Patient/Caregiver Goals Goals include eliminating urinary urgency and urinary stress incontinence symptoms PT-OP-I Pelvic Floor Start: 07/29/22 13:46 Freq: Status: Active Protocol: Document 07/30/22 11:24 [facility] (Rec: 07/30/22 12:13 [facility] [id number]) Pelvic Floor Assessment Urine Pelvic Floor Surgery No Urinary Symptoms Urge Sensation,Incomplete Emptying Leakage Size Medium Leakage Cause Cough,Exercise,Lifting,Sneeze, Urge Voiding Frequency 2 hours Nocturia 0-1 Pelvic Clock Pelvic Clock 3-6 Guarding Contraction Ability Voluntary Contraction Weak Voluntary Relaxation Weak Manual Muscle Testing Left 2 Manual Muscle Testing Right 2 Manual Muscle Testing Anterior 1 Manual Muscle Testing Posterior 3 Muscle Endurance (Seconds) 3 Comments Pelvic Floor Comments guarding in the left lateral wall of the levator ani, difficulty fully relaxing following a contraction, poor endurance PT-OP-Q Treatments Start: 07/29/22 13:46 Freq: Status: Active Protocol: Document 07/30/22 11:20 [facility] (Rec: 07/30/22 18:19 [facility] [id number]) Therapeutic Exercises Supine Exercises pelvic floor long holds Reps/Minutes 10 reps holding 10 seconds and relaxing 10 seconds PT-OP-T Assessment and Plan Start: 07/29/22 13:46 Freq: Status: Active Protocol: Document 07/30/22 11:24 [facility] (Rec: 07/30/22 12:13 [facility] [id number]) Physical Therapy Assessment Rehab Potential Rehabilitation Potential Excellent Evaluation Complexity Number of Personal Factors/Comorbidities 0 Number of Body Systems Impaired 1-2 Clinical Presentation at Evaluation Stable Impairments Impairments Activity Tolerance,Functional Activities,Functional Mobility ,Soft Tissue Mobility,Strength ,Tone Other Impairments urinary stress and urge incontinence Goals 3 Impairment Nahid reports urinary stress incontinence as well as urinary urge incontinence Dj Instructor Goal (LTG) Nahid reports a overall reduction in both urinary stress and urge incontinence LTG Duration 12 weeks 2 Impairment Decreased pelvic floor endurance Short Term Goal (STG) Nahid is able to sustain a pelvic floor contraction in supine x 10 seconds STG Duration 5 weeks Dj Instructor Goal (LTG) Nahid is able to sustain a pelvic floor contraction in standing x 5 seconds LTG Duration 12 weeks One Impairment Decreased pelvic floor strength with MMT of 1/5 for the anterior pelvic floor, 2/5 for lateral suero of the levator ani, 3/5 MMT for the posterior wall Shelter Goal (LTG) Nahid is able to increase her strength in all areas of the pelvic floor expecially the anterior wall of the levator ani for improved bladder support LTG Duration 12 weeks Assessment Summary Assessment Nahid is a 67 year female with current complaints of urinary urgency and stress incontinence symptoms. Her symptoms have progressed since she became sick with a really bad cold a year ago. Nahid reports she leaks with exercise and activities that cause pelvic pressure. She also at times leaks with urgency. She is voiding approx every 2 hours during the day. With exam today She is weak primarily in the anterior pelvic floor testing 1/5 MMT. She tests 2/5 for lateral suero and 3/5 for the posterior pelvic floor. The left lateral wall is a little guarded and she has difficulty relaxing fully. She lacks the ability to sustain a pelvic floor contraction for than a few seconds. On EMG biofeedback her average rest is 3.3 uv. Nahid is a good candidate for pelvic PT and tolerated today' s session well Physical Therapy Plan Frequency and Duration Frequency of Treatment 1x/Week Duration of treatment (weeks) 12 Plan of Care Start Date 07/30/22 Plan of Care End Date 10/22/22 Therapeutic Interventions Therapeutic Interventions Home Exercise Program, Neuromuscular Re-education, Patient/Caregiver Education, Self-Care/Home Management, Therapeutic Exercises Modalities Biofeedback Next Visit Focus/Plan Next Note Type Treatment Note Next Visit Plan EMG biofeedback for pelvic floor endurance training, begin quick pelvic floor contractions and bladder retraining
--- NOTE | 2022-07-30 18:22 | PT.OPPOC ---
Physical, Occupational & Speech Therapy At [facility] Current Diagnoses Mixed incontinence (07/30/22) Pelvic muscle wasting (07/30/22) Visit Care Team Role Provider Type ALONA Zuleta Family Provider Advanced Squaring Machine Operator Primary Care Provider Specialty: Medical Address: [address] [place] [address], [address] Email: [email or web address] Arnold Huang MD Attending Provider Physician Referring Provider Specialty: WATER POLLUTION CONTROL TECHNICIAN Address: [address] [place] [address], [address], [place], [address] Email: [email or web address] Plan Of Care PT-OP-T Assessment and Plan Start: 07/29/22 13:46 Freq: Status: Active Protocol: Document 07/30/22 11:24 [facility] (Rec: 07/30/22 12:13 [facility] [id number]) Physical Therapy Assessment Rehab Potential Rehabilitation Potential Excellent Evaluation Complexity Number of Personal Factors/Comorbidities 0 Number of Body Systems Impaired 1-2 Clinical Presentation at Evaluation Stable Impairments Impairments Activity Tolerance,Functional Activities,Functional Mobility ,Soft Tissue Mobility,Strength ,Tone Other Impairments urinary stress and urge incontinence Goals 3 Impairment Nahid reports urinary stress incontinence as well as urinary urge incontinence Admitting Clerk Goal (LTG) Nahid reports a overall reduction in both urinary stress and urge incontinence LTG Duration 12 weeks 2 Impairment Decreased pelvic floor endurance Short Term Goal (STG) Nahid is able to sustain a pelvic floor contraction in supine x 10 seconds STG Duration 5 weeks Mcc Goal (LTG) Nahid is able to sustain a pelvic floor contraction in standing x 5 seconds LTG Duration 12 weeks One Impairment Decreased pelvic floor strength with MMT of 1/5 for the anterior pelvic floor, 2/5 for lateral suero of the levator ani, 3/5 MMT for the posterior wall Admitting Clerk Goal (LTG) Nahid is able to increase her strength in all areas of the pelvic floor especially the anterior wall of the levator ani for improved bladder support LTG Duration 12 weeks Assessment Summary Assessment Nahid is a 67 year female with current complaints of urinary urgency and stress incontinence symptoms. Her symptoms have progressed since she became sick with a really bad cold a year ago. Nahid reports she leaks with exercise and activities that cause pelvic pressure. She also at times leaks with urgency. She is voiding approx every 2 hours during the day. With exam today She is weak primarily in the anterior pelvic floor testing 1/5 MMT. She tests 2/5 for lateral suero and 3/5 for the posterior pelvic floor. The left lateral wall is a little guarded and she has difficulty relaxing fully. She lacks the ability to sustain a pelvic floor contraction for than a few seconds. On EMG biofeedback her average rest is 3.3 uv. Nahid is a good candidate for pelvic PT and tolerated today' s session well Physical Therapy Plan Frequency and Duration Frequency of Treatment 1x/Week Duration of treatment (weeks) 12 Plan of Care Start Date 07/30/22 Plan of Care End Date 10/22/22 Therapeutic Interventions Therapeutic Interventions Home Exercise Program, Neuromuscular Re-education, Patient/Caregiver Education, Self-Care/Home Management, Therapeutic Exercises Modalities Biofeedback Next Visit Focus/Plan Next Note Type Treatment Note Next Visit Plan EMG biofeedback for pelvic floor endurance training, begin quick pelvic floor contractions and bladder retraining Plan of Care Dates Plan of Care Start Date 07/30/22 Plan of Care End Date 10/22/22 Electronically Signed by: Sangeeta Rojas, PT 07/30/22 6128 If you are in agreement with this Plan of Care, please return a signed and dated copy. I have reviewed this Plan of Care and certify that the skilled therapy services above are required to meet the patient?s needs. Physician Signature Date Printed Name and Credentials Clinical Instructor Signature Printed Name and Credentials
--- NOTE | 2022-08-06 12:08 | PT.OTN ---
Current Diagnoses Mixed incontinence (08/06/22) Pelvic muscle wasting (08/06/22) Physical Therapy Treatment Note PT-OP-A Visit Information Start: 07/29/22 13:46 Freq: Status: Active Protocol: Document 08/06/22 11:22 [facility] (Rec: 08/06/22 11:39 [facility] [id number]) Out-Patient Physical Therapy Visit Information Visit Information Visit Type Treatment Note Visit Start Time 11:20 Visit Stop Time 12:00 Total Visit Minutes 40 Visit Number 2 PT-OP-B Current Condition Start: 07/29/22 13:46 Freq: Status: Active Protocol: Document 07/30/22 11:24 [facility] (Rec: 07/30/22 12:13 [facility] [id number]) Current Condition History of Current Condition Onset Date 1 year ago Current Complaints urinary urge incontinence, urinary stress incontinence History of Current Condition since she has had kids she has had weakness but last fall she was sick and had a bad cough and this made her symptoms worse, now she has urgency. She voids every couple of hours. She reports she generally has a good bowel movement daily. She had been using estrodial for vaginal dryness but stopped using it when out of town x 6 weeks but she is back on it now. Prior Treatments and Tests hx of years ago. Treatment Goals Patient/Caregiver Goals Goals include eliminating urinary urgency and urinary stress incontinence symptoms PT-OP-C Subjective Start: 07/29/22 13:46 Freq: Status: Active Protocol: Document 08/06/22 11:22 [facility] (Rec: 08/06/22 11:39 [facility] [id number]) OP-PT Subjective Patient Comments Patient Comments pt notes she has been doing her exercises 2 times per day, she is more aware and feels more of her pelvic floor this week Patient Reported Progress Improving PT-OP-I Pelvic Floor Start: 07/29/22 13:46 Freq: Status: Active Protocol: Document 08/06/22 11:39 [facility] (Rec: 08/06/22 11:40 [facility] [id number]) Pelvic Floor Assessment SEMG (uV) Baseline 2.0 Contraction Ability Voluntary Contraction Weak Voluntary Relaxation Weak Manual Muscle Testing Left 2 Manual Muscle Testing Right 2 Manual Muscle Testing Anterior 1 Manual Muscle Testing Posterior 3 Muscle Endurance (Seconds) 3 Comments Pelvic Floor Comments guarding in the left lateral wall of the levator ani, difficulty fully relaxing following a contraction, poor endurance PT-OP-Q Treatments Start: 07/29/22 13:46 Freq: Status: Active Protocol: Document 08/06/22 11:22 [facility] (Rec: 08/06/22 11:39 [facility] [id number]) Therapeutic Exercises Supine Exercises templates for endurance training and eccentric control Supine Exercise Name with EMG biofeedback Reps/Minutes x 8 min pelvic floor quick contraction s Reps/Minutes x 10 reps supine ball squeeze with pelvic floor anterior contraction Reps/Minutes x 10 reps pelvic floor long holds Reps/Minutes 10 reps on 10 reps off Comments average 6.5 and max of 13.6 Self-Care/Home Management Treatment Education Patient Education Home Exercise Program Other Education pt was educated in urge defernce technique and bladder retraining PT-OP-T Assessment and Plan Start: 07/29/22 13:46 Freq: Status: Active Protocol: Document 08/06/22 11:22 [facility] (Rec: 08/06/22 11:39 [facility] [id number]) Physical Therapy Assessment Assessment Summary Assessment added in urge deference technique and bladder retraining as well as quick pelvic floor contractions. Pt tolerated well. She fatigued quickly with templates for eccentric control today Physical Therapy Plan Frequency and Duration Frequency of Treatment 1x/Week Duration of treatment (weeks) 12 Plan of Care Start Date 07/30/22 Plan of Care End Date 10/22/22 Therapeutic Interventions Therapeutic Interventions Home Exercise Program,Patient/ Caregiver Education,Self-Care/ Home Management,Therapeutic Exercises Modalities Biofeedback Next Visit Focus/Plan Next Note Type Treatment Note Next Visit Plan EMG biofeedback for pelvic floor endurance training, contine progressing pelvic floor exercises and add in lateral hip stabilization ex
--- NOTE | 2022-08-13 13:44 | PT.OTN ---
Current Diagnoses Mixed incontinence (08/13/22) Pelvic muscle wasting (08/13/22) Physical Therapy Treatment Note PT-OP-A Visit Information Start: 07/29/22 13:46 Freq: Status: Active Protocol: Document 08/13/22 11:19 [facility] (Rec: 08/13/22 12:01 [facility] [id number]) Out-Patient Physical Therapy Visit Information Visit Information Visit Type Treatment Note Visit Start Time 11:20 Visit Stop Time 12:00 Total Visit Minutes 40 Visit Number 3 PT-OP-B Current Condition Start: 07/29/22 13:46 Freq: Status: Active Protocol: Document 07/30/22 11:24 [facility] (Rec: 07/30/22 12:13 [facility] [id number]) Current Condition History of Current Condition Onset Date 1 year ago Current Complaints urinary urge incontinence, urinary stress incontinence History of Current Condition since she has had kids she has had weakness but last fall she was sick and had a bad cough and this made her symptoms worse, now she has urgency. She voids every couple of hours. She reports she generally has a good bowel movement daily. She had been using estrodial for vaginal dryness but stopped using it when out of town x 6 weeks but she is back on it now. Prior Treatments and Tests hx of years ago. Treatment Goals Patient/Caregiver Goals Goals include eliminating urinary urgency and urinary stress incontinence symptoms PT-OP-C Subjective Start: 07/29/22 13:46 Freq: Status: Active Protocol: Document 08/13/22 11:19 [facility] (Rec: 08/13/22 12:01 [facility] [id number]) OP-PT Subjective Patient Comments Patient Comments she is getting in her exercises a couple of times per day, she doesn't feel that she has had as many episodes of urgency this week. She has also been stretching before bed. PT-OP-I Pelvic Floor Start: 07/29/22 13:46 Freq: Status: Active Protocol: Document 08/06/22 11:39 [facility] (Rec: 08/06/22 11:40 [facility] [id number]) Pelvic Floor Assessment SEMG (uV) Baseline 2.0 Contraction Ability Voluntary Contraction Weak Voluntary Relaxation Weak Manual Muscle Testing Left 2 Manual Muscle Testing Right 2 Manual Muscle Testing Anterior 1 Manual Muscle Testing Posterior 3 Muscle Endurance (Seconds) 3 Comments Pelvic Floor Comments guarding in the left lateral wall of the levator ani, difficulty fully relaxing following a contraction, poor endurance PT-OP-Q Treatments Start: 07/29/22 13:46 Freq: Status: Active Protocol: Document 08/13/22 11:19 [facility] (Rec: 08/13/22 12:01 [facility] [id number]) Therapeutic Exercises Supine Exercises hip roll outs with theraband Reps/Minutes 3 x 10 reps with level 2 theraband templates for endurance training and eccentric control Supine Exercise Name with EMG biofeedback Reps/Minutes x 8 min pelvic floor quick contraction s Reps/Minutes x 10 reps supine ball squeeze with pelvic floor anterior contraction Reps/Minutes x 10 reps Comments 42 uv max pelvic floor long holds Reps/Minutes 10 reps on 10 reps off Comments 6.9 and 33.0 max Self-Care/Home Management Treatment Education Patient Education Home Exercise Program Other Education education on toileting to fully relax the pelvic floor, feet flat on the floor and taking time to fully empty PT-OP-T Assessment and Plan Start: 07/29/22 13:46 Freq: Status: Active Protocol: Document 08/13/22 11:19 [facility] (Rec: 08/13/22 12:01 [facility] [id number]) Physical Therapy Assessment Goals 3 Impairment Nahid reports urinary stress incontinence as well as urinary urge incontinence Private Inquiry Agent Goal (LTG) Nahid reports a overall reduction in both urinary stress and urge incontinence LTG Duration 12 weeks 2 Impairment Decreased pelvic floor endurance Short Term Goal (STG) Nahid is able to sustain a pelvic floor contraction in supine x 10 seconds STG Duration 5 weeks Custodial Goal (LTG) Nahid is able to sustain a pelvic floor contraction in standing x 5 seconds LTG Duration 12 weeks One Impairment Decreased pelvic floor strength with MMT of 1/5 for the anterior pelvic floor, 2/5 for lateral suero of the levator ani, 3/5 MMT for the posterior wall Custodial Goal (LTG) Nahid is able to increase her strength in all areas of the pelvic floor expecially the anterior wall of the levator ani for improved bladder support LTG Duration 12 weeks Assessment Summary Assessment pt was able to relax to baseline after doing the balls squeeze contract relax. I added in roll outs with theraband today with good tolerance Physical Therapy Plan Frequency and Duration Frequency of Treatment 1x/Week Duration of treatment (weeks) 12 Plan of Care Start Date 07/30/22 Plan of Care End Date 10/22/22 Therapeutic Interventions Therapeutic Interventions Home Exercise Program,Patient/ Caregiver Education,Self-Care/ Home Management,Therapeutic Exercises Modalities Biofeedback Next Visit Focus/Plan Next Note Type Treatment Note Next Visit Plan review hip exercise, continue working on endurance training and pts sensation of the anterior pelvic floor
--- NOTE | 2022-08-20 12:02 | PT.OTN ---
Current Diagnoses Mixed incontinence (08/20/22) Pelvic muscle wasting (08/20/22) Physical Therapy Treatment Note PT-OP-A Visit Information Start: 07/29/22 13:46 Freq: Status: Active Protocol: Document 08/20/22 11:16 [facility] (Rec: 08/20/22 12:01 [facility] [id number]) Out-Patient Physical Therapy Visit Information Visit Information Visit Type Treatment Note Visit Start Time 11:16 Visit Stop Time 12:00 Total Visit Minutes 44 Visit Number 4 PT-OP-B Current Condition Start: 07/29/22 13:46 Freq: Status: Active Protocol: Document 07/30/22 11:24 [facility] (Rec: 07/30/22 12:13 [facility] [id number]) Current Condition History of Current Condition Onset Date 1 year ago Current Complaints urinary urge incontinence, urinary stress incontinence History of Current Condition since she has had kids she has had weakness but last fall she was sick and had a bad cough and this made her symptoms worse, now she has urgency. She voids every couple of hours. She reports she generally has a good bowel movement daily. She had been using estrodial for vaginal dryness but stopped using it when out of town x 6 weeks but she is back on it now. Prior Treatments and Tests hx of years ago. Treatment Goals Patient/Caregiver Goals Goals include eliminating urinary urgency and urinary stress incontinence symptoms PT-OP-C Subjective Start: 07/29/22 13:46 Freq: Status: Active Protocol: Document 08/20/22 11:16 [facility] (Rec: 08/20/22 12:01 [facility] [id number]) OP-PT Subjective Patient Comments Patient Comments pt notes she is trying to keep doing her exercises and is feeling like things are getting stronger. PT-OP-I Pelvic Floor Start: 07/29/22 13:46 Freq: Status: Active Protocol: Document 08/06/22 11:39 [facility] (Rec: 08/06/22 11:40 [facility] [id number]) Pelvic Floor Assessment SEMG (uV) Baseline 2.0 Contraction Ability Voluntary Contraction Weak Voluntary Relaxation Weak Manual Muscle Testing Left 2 Manual Muscle Testing Right 2 Manual Muscle Testing Anterior 1 Manual Muscle Testing Posterior 3 Muscle Endurance (Seconds) 3 Comments Pelvic Floor Comments guarding in the left lateral wall of the levator ani, difficulty fully relaxing following a contraction, poor endurance PT-OP-Q Treatments Start: 07/29/22 13:46 Freq: Status: Active Protocol: Document 08/20/22 11:16 [facility] (Rec: 08/20/22 12:01 [facility] [id number]) Therapeutic Exercises Supine Exercises hip roll outs with theraband Reps/Minutes 3 x 10 reps with level 2 theraband templates for endurance training and eccentric control Supine Exercise Name with EMG biofeedback Reps/Minutes x 8 min pelvic floor quick contraction s Reps/Minutes x 10 reps supine ball squeeze with pelvic floor anterior contraction Reps/Minutes x 10 reps Comments 42 uv max pelvic floor long holds Reps/Minutes 10 reps on 10 reps off Comments 8.2 uv average today PT-OP-T Assessment and Plan Start: 07/29/22 13:46 Freq: Status: Active Protocol: Document 08/20/22 11:16 [facility] (Rec: 08/20/22 12:01 [facility] [id number]) Physical Therapy Assessment Goals 3 Impairment Nahid reports urinary stress incontinence as well as urinary urge incontinence Meter Calibrator Goal (LTG) Nahid reports a overall reduction in both urinary stress and urge incontinence LTG Duration 12 weeks One Impairment Decreased pelvic floor strength with MMT of 1/5 for the anterior pelvic floor, 2/5 for lateral suero of the levator ani, 3/5 MMT for the posterior wall Senior Living Goal (LTG) Nahid is able to increase her strength in all areas of the pelvic floor expecially the anterior wall of the levator ani for improved bladder support LTG Duration 12 weeks Assessment Summary Assessment hip roll ins and outs do help reduce tone in the pelvic floor, eccentric control is still really difficult for Nahid to perform. She would benefit from continued work in this area Physical Therapy Plan Next Visit Focus/Plan Next Note Type Treatment Note Next Visit Plan progress towards standing next visit for pelvic floor quick contractions and work on sit- stand with pelvic floor engagement
--- NOTE | 2022-08-27 12:20 | PT.OTN ---
Current Diagnoses Mixed incontinence (08/27/22) Pelvic muscle wasting (08/27/22) Physical Therapy Treatment Note PT-OP-A Visit Information Start: 07/29/22 13:46 Freq: Status: Active Protocol: Document 08/27/22 11:16 [facility] (Rec: 08/27/22 12:03 [facility] [id number]) Out-Patient Physical Therapy Visit Information Visit Information Visit Type Treatment Note Visit Start Time 11:17 Visit Stop Time 12:00 Total Visit Minutes 43 Visit Number 5 PT-OP-B Current Condition Start: 07/29/22 13:46 Freq: Status: Active Protocol: Document 07/30/22 11:24 [facility] (Rec: 07/30/22 12:13 [facility] [id number]) Current Condition History of Current Condition Onset Date 1 year ago Current Complaints urinary urge incontinence, urinary stress incontinence History of Current Condition since she has had kids she has had weakness but last fall she was sick and had a bad cough and this made her symptoms worse, now she has urgency. She voids every couple of hours. She reports she generally has a good bowel movement daily. She had been using estrodial for vaginal dryness but stopped using it when out of town x 6 weeks but she is back on it now. Prior Treatments and Tests hx of years ago. Treatment Goals Patient/Caregiver Goals Goals include eliminating urinary urgency and urinary stress incontinence symptoms PT-OP-C Subjective Start: 07/29/22 13:46 Freq: Status: Active Protocol: Document 08/27/22 11:16 [facility] (Rec: 08/27/22 12:03 [facility] [id number]) OP-PT Subjective Patient Comments Patient Comments pt notes she felt like she should be stronger with her exercises, urgency is not as severe as it was PT-OP-I Pelvic Floor Start: 07/29/22 13:46 Freq: Status: Active Protocol: Document 08/06/22 11:39 [facility] (Rec: 08/06/22 11:40 [facility] [id number]) Pelvic Floor Assessment SEMG (uV) Baseline 2.0 Contraction Ability Voluntary Contraction Weak Voluntary Relaxation Weak Manual Muscle Testing Left 2 Manual Muscle Testing Right 2 Manual Muscle Testing Anterior 1 Manual Muscle Testing Posterior 3 Muscle Endurance (Seconds) 3 Comments Pelvic Floor Comments guarding in the left lateral wall of the levator ani, difficulty fully relaxing following a contraction, poor endurance PT-OP-Q Treatments Start: 07/29/22 13:46 Freq: Status: Active Protocol: Document 08/27/22 11:16 [facility] (Rec: 08/27/22 12:03 [facility] [id number]) Therapeutic Exercises Supine Exercises diaphragmatic breathing Reps/Minutes x 6 reps TA engagement with july Reps/Minutes add to HEP 10-15 reps hip roll outs with theraband Reps/Minutes 3 x 10 reps with level 2 theraband pelvic floor quick contraction s Reps/Minutes x 10 reps Comments 24 pelvic floor long holds Comments 7.7 uv average and max of 25 Self-Care/Home Management Treatment Education Other Education education on diaphgramatic beathing with pelvic floor relaxation, extending the time to void by 10 min with urge deference technique PT-OP-T Assessment and Plan Start: 07/29/22 13:46 Freq: Status: Active Protocol: Document 08/27/22 11:16 [facility] (Rec: 08/27/22 12:03 [facility] [id number]) Physical Therapy Assessment Assessment Summary Assessment Nahid does much better with her pelvic floor contractions when she is fully relaxed in her pelvic floor. With roll outs first her pelvic floor better relaxes. Her intensity of contraction is increased after relaxation. Time was spent on urge deference technique and bladder retraining today as well as diaphragmatic breathing and relaxed awareness of the pelvic floor Physical Therapy Plan Frequency and Duration Frequency of Treatment 1x/Week Duration of treatment (weeks) 12 Plan of Care Start Date 07/30/22 Plan of Care End Date 10/22/22
--- NOTE | 2022-09-17 12:06 | PT.OTN ---
Current Diagnoses Mixed incontinence (09/17/22) Pelvic muscle wasting (09/17/22) Physical Therapy Treatment Note PT-OP-A Visit Information Start: 07/29/22 13:46 Freq: Status: Active Protocol: Document 09/17/22 11:19 [facility] (Rec: 09/17/22 12:05 [facility] [id number]) Out-Patient Physical Therapy Visit Information Visit Information Visit Type Treatment Note Visit Start Time 11:15 Visit Stop Time 12:00 Total Visit Minutes 45 Visit Number 6 PT-OP-B Current Condition Start: 07/29/22 13:46 Freq: Status: Active Protocol: Document 07/30/22 11:24 [facility] (Rec: 07/30/22 12:13 [facility] [id number]) Current Condition History of Current Condition Onset Date 1 year ago Current Complaints urinary urge incontinence, urinary stress incontinence History of Current Condition since she has had kids she has had weakness but last fall she was sick and had a bad cough and this made her symptoms worse, now she has urgency. She voids every couple of hours. She reports she generally has a good bowel movement daily. She had been using estrodial for vaginal dryness but stopped using it when out of town x 6 weeks but she is back on it now. Prior Treatments and Tests hx of years ago. Treatment Goals Patient/Caregiver Goals Goals include eliminating urinary urgency and urinary stress incontinence symptoms PT-OP-C Subjective Start: 07/29/22 13:46 Freq: Status: Active Protocol: Document 09/17/22 11:19 [facility] (Rec: 09/17/22 12:05 [facility] [id number]) OP-PT Subjective Patient Comments Patient Comments pt has been working on her 10 secon holds and she can feel the contractions now, her frequency symptoms have been less, she is trying to be aware of extending her voiding to every 2 hours. PT-OP-I Pelvic Floor Start: 07/29/22 13:46 Freq: Status: Active Protocol: Document 08/06/22 11:39 [facility] (Rec: 08/06/22 11:40 [facility] [id number]) Pelvic Floor Assessment SEMG (uV) Baseline 2.0 Contraction Ability Voluntary Contraction Weak Voluntary Relaxation Weak Manual Muscle Testing Left 2 Manual Muscle Testing Right 2 Manual Muscle Testing Anterior 1 Manual Muscle Testing Posterior 3 Muscle Endurance (Seconds) 3 Comments Pelvic Floor Comments guarding in the left lateral wall of the levator ani, difficulty fully relaxing following a contraction, poor endurance PT-OP-Q Treatments Start: 07/29/22 13:46 Freq: Status: Active Protocol: Document 09/17/22 11:19 [facility] (Rec: 09/17/22 12:05 [facility] [id number]) Therapeutic Exercises Supine Exercises diaphragmatic breathing Reps/Minutes x 6 reps pelvic floor quick contraction s Reps/Minutes x 10 reps Comments 34.7 max pelvic floor long holds Reps/Minutes 10 reps on 10 reps off Comments 7.9 max of 24.9 resting tone is lower and she went to baseline a few times Standing Exercises sit-stand with pelvic floor engagement Reps/Minutes x 10 reps standing 5 second contractions Reps/Minutes x 10 reps standing quick contrctions Standing Exercise Name pelvic floor quick contractions Reps/Minutes x 10 reps 13.8 max Self-Care/Home Management Treatment Education Other Education review of diaphragmatic breathing, discussion of voiding intervals for home, HEP given for standing pelvic floor contractions PT-OP-T Assessment and Plan Start: 07/29/22 13:46 Freq: Status: Active Protocol: Document 09/17/22 11:19 [facility] (Rec: 09/17/22 12:05 [facility] [id number]) Physical Therapy Assessment Goals 3 Impairment Nahid reports urinary stress incontinence as well as urinary urge incontinence Assisted Goal (LTG) Nahid reports a overall reduction in both urinary stress and urge incontinence LTG Duration 12 weeks 2 Impairment Decreased pelvic floor endurance Short Term Goal (STG) Nahid is able to sustain a pelvic floor contraction in supine x 10 seconds STG Duration 5 weeks Automotive Refinisher Goal (LTG) Nahid is able to sustain a pelvic floor contraction in standing x 5 seconds LTG Duration 12 weeks One Impairment Decreased pelvic floor strength with MMT of 1/5 for the anterior pelvic floor, 2/5 for lateral suero of the levator ani, 3/5 MMT for the posterior wall Assisted Goal (LTG) Nahid is able to increase her strength in all areas of the pelvic floor especially the anterior wall of the levator ani for improved bladder support LTG Duration 12 weeks Assessment Summary Assessment Nahid is doing better overall with pelvic floor contractions and her ability to feel her pelvic floor. She notes the breathing with pelvic floor contraction has been really helpful to her. Physical Therapy Plan Frequency and Duration Frequency of Treatment 1x/Week Duration of treatment (weeks) 12 Plan of Care Start Date 07/30/22 Plan of Care End Date 10/22/22 Therapeutic Interventions Therapeutic Interventions Home Exercise Program,Patient/ Caregiver Education,Self-Care/ Home Management,Therapeutic Exercises Modalities Biofeedback Next Visit Focus/Plan Next Note Type Treatment Note Next Visit Plan review standing exercises next visit
--- NOTE | 2022-10-08 12:14 | PT.OTN ---
Current Diagnoses Mixed incontinence (10/08/22) Pelvic muscle wasting (10/08/22) Physical Therapy Treatment Note PT-OP-A Visit Information Start: 07/29/22 13:46 Freq: Status: Active Protocol: Document 10/08/22 11:32 [facility] (Rec: 10/08/22 12:13 [facility] [id number]) Out-Patient Physical Therapy Visit Information Visit Information Visit Type Treatment Note Visit Start Time 11:32 Visit Stop Time 12:12 Total Visit Minutes 40 Visit Number 7 PT-OP-B Current Condition Start: 07/29/22 13:46 Freq: Status: Active Protocol: Document 07/30/22 11:24 [facility] (Rec: 07/30/22 12:13 [facility] [id number]) Current Condition History of Current Condition Onset Date 1 year ago Current Complaints urinary urge incontinence, urinary stress incontinence History of Current Condition since she has had kids she has had weakness but last fall she was sick and had a bad cough and this made her symptoms worse, now she has urgency. She voids every couple of hours. She reports she generally has a good bowel movement daily. She had been using estrodial for vaginal dryness but stopped using it when out of town x 6 weeks but she is back on it now. Prior Treatments and Tests hx of years ago. Treatment Goals Patient/Caregiver Goals Goals include eliminating urinary urgency and urinary stress incontinence symptoms PT-OP-C Subjective Start: 07/29/22 13:46 Freq: Status: Active Protocol: Document 10/08/22 11:32 [facility] (Rec: 10/08/22 12:13 [facility] [id number]) OP-PT Subjective Patient Comments Patient Comments pt notes she feels more aware of her pelvic floor she feels stronger overall, she does still have a all of a sudden urgency. PT-OP-I Pelvic Floor Start: 07/29/22 13:46 Freq: Status: Active Protocol: Document 08/06/22 11:39 [facility] (Rec: 08/06/22 11:40 [facility] [id number]) Pelvic Floor Assessment SEMG (uV) Baseline 2.0 Contraction Ability Voluntary Contraction Weak Voluntary Relaxation Weak Manual Muscle Testing Left 2 Manual Muscle Testing Right 2 Manual Muscle Testing Anterior 1 Manual Muscle Testing Posterior 3 Muscle Endurance (Seconds) 3 Comments Pelvic Floor Comments guarding in the left lateral wall of the levator ani, difficulty fully relaxing following a contraction, poor endurance PT-OP-Q Treatments Start: 07/29/22 13:46 Freq: Status: Active Protocol: Document 10/08/22 11:32 [facility] (Rec: 10/08/22 12:13 [facility] [id number]) Therapeutic Exercises Supine Exercises diaphragmatic breathing Reps/Minutes x 6 reps TA engagement with july Reps/Minutes add to HEP 10-15 reps hip roll outs with theraband Reps/Minutes 3 x 10 reps with level 2 theraband templates for endurance training and eccentric control Supine Exercise Name with EMG biofeedback Reps/Minutes x 8 min pelvic floor quick contraction s Reps/Minutes x 10 reps Comments 34.7 max supine ball squeeze with pelvic floor anterior contraction Reps/Minutes x 10 reps Comments 42 uv max pelvic floor long holds Reps/Minutes 10 reps on 10 reps off Comments 9.0 average 25 max , abilty to rest inbetween is better Standing Exercises standing 5 second contractions Reps/Minutes x 10 reps PT-OP-T Assessment and Plan Start: 07/29/22 13:46 Freq: Status: Active Protocol: Document 10/08/22 11:32 [facility] (Rec: 10/08/22 12:13 [facility] [id number]) Physical Therapy Assessment Goals 3 Impairment Nahid reports urinary stress incontinence as well as urinary urge incontinence Correction Goal (LTG) Nahid reports a overall reduction in both urinary stress and urge incontinence Nahid notes symptoms are improving but if she coughs without tightnening her pelvic floor she will notice leakage LTG Duration 12 weeks 2 Impairment Decreased pelvic floor endurance Short Term Goal (STG) Nahid is able to sustain a pelvic floor contraction in supine x 10 seconds GOAL MET STG Duration 5 weeks Correction Goal (LTG) Nahid is able to sustain a pelvic floor contraction in standing x 5 seconds LTG Duration 12 weeks One Impairment Decreased pelvic floor strength with MMT of 1/5 for the anterior pelvic floor, 2/5 for lateral suero of the levator ani, 3/5 MMT for the posterior wall Automotive Manager Goal (LTG) Nahid is able to increase her strength in all areas of the pelvic floor expecially the anterior wall of the levator ani for improved bladder support LTG Duration 12 weeks Assessment Summary Assessment nahid is showing improvements with pelvic floor endurance, the breathing is really helping her as well with pelvic floor relaxation Physical Therapy Plan Frequency and Duration Frequency of Treatment 1x/Week Duration of treatment (weeks) 12 Plan of Care Start Date 07/30/22 Plan of Care End Date 10/22/22 Next Visit Focus/Plan Next Note Type Progress Note Next Visit Plan continue eccentric control and standing pelvic floor
--- NOTE | 2022-10-15 12:20 | PT.OTN ---
Current Diagnoses Mixed incontinence (10/15/22) Pelvic muscle wasting (10/15/22) Physical Therapy Treatment Note PT-OP-A Visit Information Start: 07/29/22 13:46 Freq: Status: Active Protocol: Document 10/15/22 11:45 [facility] (Rec: 10/15/22 12:20 [facility] [id number]) Out-Patient Physical Therapy Visit Information Visit Information Visit Type Treatment Note Visit Note pt 15 min late for appt Visit Start Time 11:45 Visit Stop Time 12:15 Total Visit Minutes 30 Visit Number 8 PT-OP-B Current Condition Start: 07/29/22 13:46 Freq: Status: Active Protocol: Document 07/30/22 11:24 [facility] (Rec: 07/30/22 12:13 [facility] [id number]) Current Condition History of Current Condition Onset Date 1 year ago Current Complaints urinary urge incontinence, urinary stress incontinence History of Current Condition since she has had kids she has had weakness but last fall she was sick and had a bad cough and this made her symptoms worse, now she has urgency. She voids every couple of hours. She reports she generally has a good bowel movement daily. She had been using estrodial for vaginal dryness but stopped using it when out of town x 6 weeks but she is back on it now. Prior Treatments and Tests hx of years ago. Treatment Goals Patient/Caregiver Goals Goals include eliminating urinary urgency and urinary stress incontinence symptoms PT-OP-C Subjective Start: 07/29/22 13:46 Freq: Status: Active Protocol: Document 10/08/22 11:32 [facility] (Rec: 10/08/22 12:13 [facility] [id number]) OP-PT Subjective Patient Comments Patient Comments pt notes she feels more aware of her pelvic floor she feels stronger overall, she does still have a all of a sudden urgency. PT-OP-I Pelvic Floor Start: 07/29/22 13:46 Freq: Status: Active Protocol: Document 08/06/22 11:39 [facility] (Rec: 08/06/22 11:40 [facility] [id number]) Pelvic Floor Assessment SEMG (uV) Baseline 2.0 Contraction Ability Voluntary Contraction Weak Voluntary Relaxation Weak Manual Muscle Testing Left 2 Manual Muscle Testing Right 2 Manual Muscle Testing Anterior 1 Manual Muscle Testing Posterior 3 Muscle Endurance (Seconds) 3 Comments Pelvic Floor Comments guarding in the left lateral wall of the levator ani, difficulty fully relaxing following a contraction, poor endurance PT-OP-Q Treatments Start: 07/29/22 13:46 Freq: Status: Active Protocol: Document 10/15/22 11:45 [facility] (Rec: 10/15/22 12:20 [facility] [id number]) Therapeutic Exercises Supine Exercises diaphragmatic breathing Reps/Minutes x 6 reps TA engagement with march Reps/Minutes add to HEP 10-15 reps templates for endurance training and eccentric control Supine Exercise Name with EMG biofeedback Reps/Minutes x 8 min pelvic floor quick contraction s Reps/Minutes x 10 reps Comments 34.7 max supine ball squeeze with pelvic floor anterior contraction Reps/Minutes x 10 reps Comments 12.3 and max of 21 pelvic floor long holds Reps/Minutes 10 reps on 10 reps off Comments 8.9 max 40 PT-OP-T Assessment and Plan Start: 07/29/22 13:46 Freq: Status: Active Protocol: Document 10/15/22 11:45 [facility] (Rec: 10/15/22 12:20 [facility] [id number]) Physical Therapy Assessment Goals 3 Impairment Nahid reports urinary stress incontinence as well as urinary urge incontinence Care Home Goal (LTG) Nahid reports a overall reduction in both urinary stress and urge incontinence Nahid notes symptoms are improving but if she coughs without tightnening her pelvic floor she will notice leakage Excellent progress LTG Duration 12 weeks 2 Impairment Decreased pelvic floor endurance Short Term Goal (STG) Nahid is able to sustain a pelvic floor contraction in supine x 10 seconds GOAL MET STG Duration 5 weeks Care Home Goal (LTG) Nahid is able to sustain a pelvic floor contraction in standing x 5 seconds GOAL not yet met LTG Duration 12 weeks One Impairment Decreased pelvic floor strength with MMT of 1/5 for the anterior pelvic floor, 2/5 for lateral suero of the levator ani, 3/5 MMT for the posterior wall Care Home Goal (LTG) Nahid is able to increase her strength in all areas of the pelvic floor expecially the anterior wall of the levator ani for improved bladder support Good progress LTG Duration 12 weeks Assessment Summary Assessment nahid is showing improvements with pelvic floor endurance, the breathing is really helping her as well with pelvic floor relaxation. She is reporting overall a reduction in urinary leakage as well as urgency. Nahid would benefit from continued PT to meet all above goals Physical Therapy Plan Frequency and Duration Frequency of Treatment 1x/Week Duration of treatment (weeks) 12 Plan of Care Start Date 10/15/22 Plan of Care End Date 12/15/22 Therapeutic Interventions Therapeutic Interventions Home Exercise Program,Patient/ Caregiver Education,Self-Care/ Home Management,Therapeutic Exercises Modalities Biofeedback Next Visit Focus/Plan Next Note Type Treatment Note Next Visit Plan continue eccentric control and standing pelvic floor exercises
--- NOTE | 2022-10-15 12:22 | PT.OPPOC ---
Physical, Occupational & Speech Therapy At [facility] Current Diagnoses Mixed incontinence (10/15/22) Pelvic muscle wasting (10/15/22) Visit Care Team Role Provider Type ALONA Zuleta Family Provider Advanced Core Worker Primary Care Provider Specialty: Medical Address: [address] [place] [address], [id number] Email: [email or web address] Arnold Huang MD Attending Provider Physician Referring Provider Specialty: JEEP DRIVER Address: [address] [place] [address], [address], [place], [address] Email: [email or web address] Plan Of Care PT-OP-T Assessment and Plan Start: 07/29/22 13:46 Freq: Status: Active Protocol: Document 10/15/22 11:45 [facility] (Rec: 10/15/22 12:20 [facility] [id number]) Physical Therapy Assessment Goals 3 Impairment Nahid reports urinary stress incontinence as well as urinary urge incontinence Room Service Supervisor Goal (LTG) Nahid reports a overall reduction in both urinary stress and urge incontinence Nahid notes symptoms are improving but if she coughs without tightnening her pelvic floor she will notice leakage Excellent progress LTG Duration 12 weeks 2 Impairment Decreased pelvic floor endurance Short Term Goal (STG) Nahid is able to sustain a pelvic floor contraction in supine x 10 seconds GOAL MET STG Duration 5 weeks Alf Goal (LTG) Nahid is able to sustain a pelvic floor contraction in standing x 5 seconds GOAL not yet met LTG Duration 12 weeks One Impairment Decreased pelvic floor strength with MMT of 1/5 for the anterior pelvic floor, 2/5 for lateral suero of the levator ani, 3/5 MMT for the posterior wall Room Service Supervisor Goal (LTG) Nahid is able to increase her strength in all areas of the pelvic floor especially the anterior wall of the levator ani for improved bladder support Good progress LTG Duration 12 weeks Assessment Summary Assessment Nahid is showing improvements with pelvic floor endurance, the breathing is really helping her as well with pelvic floor relaxation. She is reporting overall a reduction in urinary leakage as well as urgency. Nahid would benefit from continued PT to meet all above goals Physical Therapy Plan Frequency and Duration Frequency of Treatment 1x/Week Duration of treatment (weeks) 12 Plan of Care Start Date 10/15/22 Plan of Care End Date 12/15/22 Therapeutic Interventions Therapeutic Interventions Home Exercise Program,Patient/ Caregiver Education,Self-Care/ Home Management,Therapeutic Exercises Modalities Biofeedback Next Visit Focus/Plan Next Note Type Treatment Note Next Visit Plan continue eccentric control and standing pelvic floor exercises Plan of Care Dates Plan of Care Start Date 10/15/22 Plan of Care End Date 12/15/22 Electronically Signed by: Sangeeta Rojas, PT 10/15/22 [id number] If you are in agreement with this Plan of Care, please return a signed and dated copy. I have reviewed this Plan of Care and certify that the skilled therapy services above are required to meet the patient?s needs. Physician Signature Date Printed Name and Credentials Clinical Instructor Signature Printed Name and Credentials
--- NOTE | 2022-10-22 14:44 | PT.OTN ---
Current Diagnoses Mixed incontinence (10/22/22) Pelvic muscle wasting (10/22/22) Physical Therapy Treatment Note PT-OP-A Visit Information Start: 07/29/22 13:46 Freq: Status: Active Protocol: Document 10/22/22 11:31 [facility] (Rec: 10/22/22 12:15 [facility] [id number]) Out-Patient Physical Therapy Visit Information Visit Information Visit Type Treatment Note Visit Start Time 11:30 Visit Stop Time 12:15 Total Visit Minutes 45 Visit Number 9 PT-OP-B Current Condition Start: 07/29/22 13:46 Freq: Status: Active Protocol: Document 07/30/22 11:24 [facility] (Rec: 07/30/22 12:13 [facility] [id number]) Current Condition History of Current Condition Onset Date 1 year ago Current Complaints urinary urge incontinence, urinary stress incontinence History of Current Condition since she has had kids she has had weakness but last fall she was sick and had a bad cough and this made her symptoms worse, now she has urgency. She voids every couple of hours. She reports she generally has a good bowel movement daily. She had been using estrodial for vaginal dryness but stopped using it when out of town x 6 weeks but she is back on it now. Prior Treatments and Tests hx of years ago. Treatment Goals Patient/Caregiver Goals Goals include eliminating urinary urgency and urinary stress incontinence symptoms PT-OP-C Subjective Start: 07/29/22 13:46 Freq: Status: Active Protocol: Document 10/22/22 11:31 [facility] (Rec: 10/22/22 12:15 [facility] [id number]) OP-PT Subjective Patient Comments Patient Comments pt notes she has been doing more of her exercises this week and has been trying to work on pelvic floor contractions with sit-stand Patient Reported Progress Improving PT-OP-I Pelvic Floor Start: 07/29/22 13:46 Freq: Status: Active Protocol: Document 08/06/22 11:39 [facility] (Rec: 08/06/22 11:40 [facility] [id number]) Pelvic Floor Assessment SEMG (uV) Baseline 2.0 Contraction Ability Voluntary Contraction Weak Voluntary Relaxation Weak Manual Muscle Testing Left 2 Manual Muscle Testing Right 2 Manual Muscle Testing Anterior 1 Manual Muscle Testing Posterior 3 Muscle Endurance (Seconds) 3 Comments Pelvic Floor Comments guarding in the left lateral wall of the levator ani, difficulty fully relaxing following a contraction, poor endurance PT-OP-Q Treatments Start: 07/29/22 13:46 Freq: Status: Active Protocol: Document 10/22/22 11:31 [facility] (Rec: 10/22/22 12:15 [facility] [id number]) Therapeutic Exercises Supine Exercises bridges with theraband around legs Reps/Minutes x 10 reps hip roll outs with theraband Reps/Minutes 3 x 10 reps with level 2 theraband templates for endurance training and eccentric control Supine Exercise Name with EMG biofeedback Reps/Minutes x 8 min pelvic floor quick contraction s Reps/Minutes x 10 reps Comments 34.7 max supine ball squeeze with pelvic floor anterior contraction Comments 10 uv with max of 33 pelvic floor long holds Reps/Minutes 10 reps on 10 sec off Comments 7.5 average and max of 27.2 Standing Exercises sit-stand with pelvic floor engagement Reps/Minutes x 10 reps PT-OP-T Assessment and Plan Start: 07/29/22 13:46 Freq: Status: Active Protocol: Document 10/22/22 11:31 [facility] (Rec: 10/22/22 12:15 [facility] [id number]) Physical Therapy Assessment Goals 3 Impairment Nahid reports urinary stress incontinence as well as urinary urge incontinence Tariff Expert Goal (LTG) Nahid reports a overall reduction in both urinary stress and urge incontinence Nahid notes symptoms are improving but if she coughs without tightnening her pelvic floor she will notice leakage Excellent progress LTG Duration 12 weeks 2 Impairment Decreased pelvic floor endurance Short Term Goal (STG) Nahid is able to sustain a pelvic floor contraction in supine x 10 seconds GOAL MET STG Duration 5 weeks Tariff Expert Goal (LTG) Nahid is able to sustain a pelvic floor contraction in standing x 5 seconds GOAL not yet met LTG Duration 12 weeks One Impairment Decreased pelvic floor strength with MMT of 1/5 for the anterior pelvic floor, 2/5 for lateral suero of the levator ani, 3/5 MMT for the posterior wall Prison Goal (LTG) Nahid is able to increase her strength in all areas of the pelvic floor especially the anterior wall of the levator ani for improved bladder support Good progress LTG Duration 12 weeks Assessment Summary Assessment Good tolerance for all exercises added in bridges and reviewed sit-stand with pelvic floor engagement. Nahid still has difficulty sustaining a pelvic floor contraction in standing. Physical Therapy Plan Frequency and Duration Frequency of Treatment 1x/Week Duration of treatment (weeks) 12 Plan of Care Start Date 10/15/22 Plan of Care End Date 12/15/22 Therapeutic Interventions Therapeutic Interventions Home Exercise Program,Patient/ Caregiver Education,Self-Care/ Home Management,Therapeutic Exercises Modalities Biofeedback Next Visit Focus/Plan Next Note Type Treatment Note Next Visit Plan continue eccentric control and standing pelvic floor exercises
--- NOTE | 2023-01-05 09:21 | PT.OPDS ---
Current Diagnoses Mixed incontinence (10/22/22) Pelvic muscle wasting (10/22/22) Visit Care Team Role Provider Type ALONA Zuleta Family Provider Advanced Kettle Girl Primary Care Provider Specialty: Medical Address: [address] [place] [address], [address] Email: [email or web address] Arnold Huang MD Attending Provider Physician Referring Provider Specialty: CHIEF SPECIALIST LEED Address: [address] [place] [address], [address], [address] Email: [email or web address] Visit Number Visit Number 9 Discharge Summary PT-OP-B Current Condition Start: 07/29/22 13:46 Freq: Status: Active Protocol: Document 07/30/22 11:24 [facility] (Rec: 07/30/22 12:13 [facility] [id number]) Current Condition History of Current Condition Onset Date 1 year ago Current Complaints urinary urge incontinence, urinary stress incontinence History of Current Condition since she has had kids she has had weakness but last fall she was sick and had a bad cough and this made her symptoms worse, now she has urgency. She voids every couple of hours. She reports she generally has a good bowel movement daily. She had been using estrodial for vaginal dryness but stopped using it when out of town x 6 weeks but she is back on it now. Prior Treatments and Tests hx of years ago. Treatment Goals Patient/Caregiver Goals Goals include eliminating urinary urgency and urinary stress incontinence symptoms PT-OP-C Subjective Start: 07/29/22 13:46 Freq: Status: Active Protocol: Document 10/22/22 11:31 [facility] (Rec: 10/22/22 12:15 [facility] [id number]) OP-PT Subjective Patient Comments Patient Comments pt notes she has been doing more of her exercises this week and has been trying to work on pelvic floor contractions with sit-stand Patient Reported Progress Improving PT-OP-I Pelvic Floor Start: 07/29/22 13:46 Freq: Status: Active Protocol: Document 08/06/22 11:39 [facility] (Rec: 08/06/22 11:40 [facility] [id number]) Pelvic Floor Assessment SEMG (uV) Baseline 2.0 Contraction Ability Voluntary Contraction Weak Voluntary Relaxation Weak Manual Muscle Testing Left 2 Manual Muscle Testing Right 2 Manual Muscle Testing Anterior 1 Manual Muscle Testing Posterior 3 Muscle Endurance (Seconds) 3 Comments Pelvic Floor Comments guarding in the left lateral wall of the levator ani, difficulty fully relaxing following a contraction, poor endurance PT-OP-T Assessment and Plan Start: 07/29/22 13:46 Freq: Status: Active Protocol: Document 01/05/23 09:20 [facility] (Rec: 01/05/23 09:21 [facility] [id number]) Physical Therapy Assessment Assessment Summary Assessment As of her last visit in PT Nahid had good tolerance for all exercises added in bridges and reviewed sit-stand with pelvic floor engagement. Nahid still has difficulty sustaining a pelvic floor contraction in standing. She needed to cx her last visit in PT and was not able to reschedule due to being outside the plan of care. I would be happy to reinitiate PT again in the future should Nahid want to continue. Physical Therapy Plan Discharge Physical Therapy Discharge Reasons Change in Medical Status
== END 2023-01-06 15:57 | disposition home or self-care (01) ==
LOC: PHYS 11:30
PROVIDERS: Absent Provider Registered Nurse Diabetes Educator; Family Provider Registered Nurse Diabetes Educator; PCP Registered Nurse Diabetes Educator; Referring Provider Obstetrics & Gynecology; Visit Provider Obstetrics & Gynecology
DX: N39.46 Mixed incontinence (principal); N81.84 Pelvic muscle wasting
CPT/HCPCS: 97110; 97161; 97535

== ENCOUNTER → 2022-10-28 16:18 | Outpatient (CLI) | payer MEDICARE, SELFPAY ==
--- NOTE | 2022-10-28 16:21 | DI.RAD.S_ITS ---
PROCEDURE: XR KNEE RT 3V INDICATIONS: chronic knee pain with flare TECHNIQUE: 3 views of the knee were acquired. COMPARISON: None. FINDINGS: Bones: No fractures or dislocations. [id number] tricompartmental osteoarthritis is seen most notably in medial femoral tibial compartment with joint space narrowing, subchondral sclerosis and marginal osteophyte formation. No significant patellar subluxation. No suspicious bony lesions. Soft tissues: No joint effusion. No suspicious soft tissue calcifications. 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 No fracture or dislocation. No significant joint effusion. Dictated by: Miguel Angel Mckeon M.D. on 10/28/2022 at 17:02 Approved by: Miguel Angel Mckeon M.D. on 10/28/2022 at 17:03
== END ==
PROVIDERS: Family Provider Registered Nurse Diabetes Educator; PCP Registered Nurse Diabetes Educator; Referring Provider Nurse Practitioner Family; Visit Provider Nurse Practitioner Family
DX: M25.561 Pain in right knee (principal); M17.11 Unilateral primary osteoarthritis, right knee
CPT/HCPCS: 73562

== ENCOUNTER → 2023-08-10 | Outpatient (CLI) | payer MEDICARE, SELFPAY ==
--- NOTE | 2023-08-10 14:20 | DI.RAD.S_ITS ---
Bone Density Report Name: ANCELMO NICHOLSON Age: 68 Sex: Female Ethnicity: White Date of : 1955 Indication: osteopenia; Referring Provider: ANAIS HAINES Study: Bone densitometry was performed. Exam Date: August 10, 2023 Accession number: [id number] Bone Density: Region BMD T-score Z-score Classification AP Spine(L1-L4) 0.814 -2.1 0.0 Osteopenia Femoral Neck (Left) 0.626 -2.0 -0.2 Osteopenia Total Hip (Left) 0.760 -1.5 0.0 Osteopenia Femoral Neck (Right) 0.656 -1.7 0.1 Osteopenia Total Hip (Right) 0.769 -1.4 0.1 Osteopenia Total Hip Mean 0.765 -1.5 0.1 Osteopenia World Health Organization criteria for BMD impression classify patients as: Normal (T-score at or above -1.0), Osteopenia (T-score between -1.0 and -2.5), or Osteoporosis (T-score at or below -2.5). 10-year Fracture Risk(1): Major Osteoporotic Fracture 11% Hip Fracture 2.1% Reported Risk Factors: [place] (), Neck BMD=0.626, BMI=29.3 (1) FRAX(R) Version 3.08. Fracture probability calculated for an untreated patient. Fracture probability may be lower if the patient has received treatment. Previous Exams: -- Region Exam Age BMD T-score BMD Change BMD Change Date g/cm2 vs Baseline vs Previous -- AP Spine (L1-L4) 08/10/2023 68 0.814 -2.1 -0.183 (-18.4%)# -0.018 (-2.2%)# 07/17/2021 66 0.832 -2.0 -0.165 (-16.5%)* -0.025 (-2.9%)* 05/10/2018 63 0.858 -1.7 -0.140 (-14.0%)* -0.140 (-14.0%)* 03/12/2004 49 0.997 -0.5 Total Hip(Left) 08/10/2023 68 0.760 -1.5 -0.149 (-16.4%)# -0.007 (-0.9%)# 07/17/2021 66 0.767 -1.4 -0.142 (-15.7%)* -0.009 (-1.2%) 05/10/2018 63 0.776 -1.4 -0.133 (-14.6%)* -0.133 (-14.6%)* 03/12/2004 49 0.909 -0.3 Total Hip(Right) 08/10/2023 68 0.769 -1.4 -0.137 (-15.1%)# 0.011 (1.5%)# 07/17/2021 66 0.758 -1.5 -0.148 (-16.4%)* -0.028 (-3.5%)* 05/10/2018 63 0.786 -1.3 -0.121 (-13.3%)* -0.121 (-13.3%)* 03/12/2004 49 0.906 -0.3 -- *Denotes significance at 95% confidence level, LSC for AP Spine = 0.022 g/cm2, LSC for Total Hip = 0.027 g/cm2 # Denotes dissimilar scan types or analysis methods Impression: The patient has low bone mass, based on the Total Spine T-score. The patient has an estimated ten-year risk of hip fracture of 2.1% and an estimated ten-year risk of major fracture of 11%, based on the WHO FRAX algorithm. No significant bone loss was observed. Discussion: BONE DENSITY IS LOW AT ONE OR MORE SKELETAL SITES. This patient's lowest T-score is low at one or more skeletal sites. It meets the World Health Organization's (WHO) criteria for low bone mass (T-score between -1.0 and -2.5). The patient's 10-year risk of fracture as calculated by FRAX is less than the threshold where pharmacological therapy is recommended by the National Osteoporosis Foundation (NOF). However, all treatment decisions require clinical judgment and consideration of individual patient factors, including patient preferences, comorbidities, previous drug use, risk factors not captured in the FRAX model (e.g., frailty, falls, vitamin D deficiency, increased bone turnover, interval significant decline in bone density) and possible under or overestimation of fracture risk by FRAX. The patient should follow a healthful lifestyle (good nutrition with adequate calcium and vitamin D, and appropriate weight-bearing exercise). Follow-Up: Consider repeating this study in 2 to 3 years to reassess this patient's status, or sooner if there is some new clinical indication. Reported by: [facility] SOFIA RICCI M.D. on 08/10/2023 2:45:00 PM.
== END ==
PROVIDERS: Family Provider Registered Nurse Diabetes Educator; PCP Registered Nurse Diabetes Educator; Referring Provider Registered Nurse Diabetes Educator; Visit Provider Registered Nurse Diabetes Educator
DX: Z78.0 Asymptomatic menopausal state (principal); M85.88 Other specified disorders of bone density and structure, other site
CPT/HCPCS: 77080

== ENCOUNTER → 2024-02-23 16:40 | Outpatient (CLI) | payer MEDICARE, SELFPAY ==
--- NOTE | 2024-02-23 16:41 | DI.RAD.S_ITS ---
PROCEDURE: XR KNEE RT 3V INDICATIONS: Worsening knee pain - worsening OA? TECHNIQUE: 3 views of the knee were acquired. COMPARISON: [facility], CR, XR KNEE RT 3V, 10/28/2022, 16:21. FINDINGS: Bones: No fractures or dislocations. Moderate medial and mild lateral and patellofemoral compartment joint space narrowing and juxta-articular osteophytosis. No suspicious bony lesions. Soft tissues: No joint effusion. No suspicious soft tissue calcifications. IMPRESSION: 1. No acute bony abnormality or significant effusion. 2. Moderate medial and mild lateral and patellofemoral compartment osteoarthritis, slightly progressed in the medial compartment compared to prior dated October 28, 2022. Dictated by: Martín Jenkins M.D. on 02/24/2024 at 15:12 Approved by: Martín Jenkins M.D. on 02/24/2024 at 15:13
--- NOTE | 2024-02-23 16:41 | DI.RAD.S_ITS ---
PROCEDURE: XR KNEE LT 3V INDICATIONS: Worsening knee pain - worsening OA? TECHNIQUE: 3 views of the knee were acquired. COMPARISON: [facility], CR, XR KNEE RT 3V, 10/28/2022, 16:21. FINDINGS: Bones: No fractures or dislocations. Moderate medial and mild lateral and patellofemoral compartment joint space narrowing and juxta-articular osteophytosis. No suspicious bony lesions. Soft tissues: Trace joint effusion. No suspicious soft tissue calcifications. IMPRESSION: 1. No acute bony abnormality or significant effusion. 2. Moderate medial and mild lateral and patellofemoral compartment osteoarthritis. No comparison of the left knee is available to evaluate for interval change. Dictated by: Martín Jenkins M.D. on 02/24/2024 at 15:10 Approved by: Martín Jenkins M.D. on 02/24/2024 at 15:11
== END ==
PROVIDERS: Family Provider Registered Nurse Diabetes Educator; PCP Registered Nurse Diabetes Educator; Referring Provider Physician Assistant; Visit Provider Physician Assistant
DX: M17.0 Bilateral primary osteoarthritis of knee (principal)
CPT/HCPCS: 73562

== ENCOUNTER → 2024-04-06 08:15 | Outpatient (CLI) | payer MEDICARE, SELFPAY ==
[2024-04-06 09:46] LABS: Alanine Aminotransferase 15 IU/L (<35); Albumin 3.9 g/dL (3.5-5.0); Albumin Globulin Ratio 1.4 (1.0-2.8); Alkaline Phosphatase 80 U/L (38-126); Aspartate Aminotransferase 22 IU/L (14-36); BUN Creatinine Ratio 15.1 (6-22); Bilirubin Total 0.5 mg/dL (0.2-1.3); Blood Urea Nitrogen 14 mg/dL (7-17); Calcium 9.3 mg/dL (8.4-10.2); Carbon Dioxide 27 mmol/L (22-32); Chloride 106 mmol/L (98-107); Cholesterol 229 mg/dL (140-199); Estimated Glomerular Filt Rate > 60 mL/min (>60); Globulin 2.7 g/dL (1.7-4.1); Glucose 88 mg/dL (80-110); HDL Cholesterol 79 mg/dL (40-60); HEMOLYSIS < 15 (0-50); LDL Cholesterol Calculated 138 mg/dL (<100); Potassium 4.6 mmol/L (3.4-5.1); Sodium 138 mmol/L (137-145); Total Protein 6.6 g/dL (6.3-8.2); Triglycerides 61 mg/dL (35-150)
[2024-04-06 10:11] LABS: TSH w/ Reflex to FT4 2.32 uIU/mL (0.47-4.68)
== END ==
PROVIDERS: Family Provider Registered Nurse Diabetes Educator; PCP Registered Nurse Diabetes Educator; Referring Provider Physician Assistant; Visit Provider Physician Assistant
DX: E78.00 Pure hypercholesterolemia, unspecified (principal); R63.5 Abnormal weight gain
CPT/HCPCS: 36415; 80053; 80061; 84443